=== PATIENT | male | born 1965 | race African-American/Black ===

== ENCOUNTER 2017-07-03 19:52 | Inpatient (IN) | payer OTHER ==
[2017-07-03] MEDS ORDERED: FUROSEMIDE 10 MG/ML 4 ML VIAL IV STA (20:22)
[2017-07-03] MEDS ORDERED: ALBUTEROL NEBULIZED 2.5 MG/3 ML INHALATION STA (20:22)
[2017-07-03] MEDS ORDERED: methylPREDNISolone SOD SUCCI 125 MG/2 ML VIAL IV STA (20:22)
[2017-07-03 20:31] LABS: Basophils # (A) 0.1 k/uL (0-0.2); Basophils % (A) 1 %; Eosinophils # (A) 0.3 k/uL (0-0.7); Eosinophils % (A) 4 %; HCT 44.3 % (39.0-53.0); HGB 14.5 gm/dL (13.0-17.5); Lymphocytes # (A) 1.7 k/uL (1.0-4.8); Lymphocytes % (A) 25 %; MCH 31.9 pg (25.0-35.0); MCHC 32.8 g/dL (31.0-37.0); MCV 97.5 fL (80.0-100.0); Monocytes # (A) 0.3 k/uL (0-1.0); Monocytes % (A) 4 %; Neutrophils # (A) 4.5 k/uL (1.3-7.7); Neutrophils % (A) 64 %; Platelet Count 261 k/uL (150-450); RBC 4.55 m/uL (4.30-5.90); RDW 14.1 % (11.5-15.5)
[2017-07-03 20:47] LABS: Albumin 3.6 g/dL (3.5-5.0); Potassium 3.9 mmol/L (3.5-5.1); Total Bilirubin 2.5 mg/dL (0.2-1.3); Total Protein 6.5 g/dL (6.3-8.2)
[2017-07-03 20:51] LABS: D-Dimer 0.78 mg/L FEU (<0.60); INR 1.1 (<1.2); Partial Thromboplastin Time 22.8 sec (22.0-30.0); Prothrombin Time 11.1 sec (9.0-12.0)
[2017-07-03 21:00] LABS: Creatine Kinase MB 11.4 ng/mL (0.0-2.4); Troponin I 0.114 ng/mL (0.000-0.034)
--- NOTE | 2017-07-03 21:09 | XR ---
EXAMINATION TYPE: XR chest 2V DATE OF EXAM: 07/03/2017 COMPARISON: NONE HISTORY: History of COPD with cough and difficulty breathing. TECHNIQUE: Frontal and lateral views of the chest are obtained. FINDINGS: There is chronic parenchymal change without suspicious focal air space opacity, pleural ef fusion, or pneumothorax seen. The cardiac silhouette size is enlarged with bilateral hilar prominenc e felt to reflect products of underlying pulmonary artery hypertension. The osseous structures are intact. IMPRESSION: Cardiomegaly and chronic parenchymal change without acute pulmonary process.
[2017-07-03] MEDS ORDERED: HEPARIN SODIUM,PORCINE 5,000 UNIT/ML 1 ML VIAL IV ONE (21:38)
--- NOTE | 2017-07-03 21:38 | ED ---
SOB HPI - General Chief Complaint: Shortness of Breath Stated Complaint: SOB Time Seen by Provider: 07/03/17 20:17 Source: patient Mode of arrival: wheelchair Limitations: no limitations - History of Present Illness Initial Comments: 21 years old gentleman came in with a shortness of breath he said he bit short winded for about 20 Weeks he said he ran out of his pills and ran out of his inhalers he said he has a history of COPD and congestive heart failure he denies any fever no chills he is not coughing up any phlegm he saidit only hurt when he takes a deep breath. No headaches no neck stiffness no abdominal pain no chest pain only pleuritic chest pain no fever no chills no sinus symptoms of TIA or CVA - Related Data Home Medications Medication Instructions Recorded Confirmed Aspirin 81 mg PO DAILY 07/03/17 07/03/17 Furosemide [Lasix] 40 mg PO DAILY 07/03/17 07/03/17 Metolazone (Unknown Dose) 1 tab PO DIRECTED 07/03/17 07/03/17 Allergies Allergy/AdvReac Type Severity Reaction Status Date / Time lisinopril AdvReac Swelling Verified 07/03/17 20:18 Review of Systems ROS Statement: Those systems with pertinent positive or pertinent negative responses have been documented in the HPI. ROS Other: All systems not noted in ROS Statement are negative. Past Medical History Past Medical History: Heart Failure, COPD, Hypertension History of Any Multi-Drug Resistant Organisms: None Reported Past Surgical History: No Surgical Hx Reported Past Psychological History: No Psychological Hx Reported Smoking Status: Current every day smoker Past Alcohol Use History: Occasional Past Drug Use History: None Reported General Exam - General Exam Comments Initial Comments: General: The patient is awake and alert, in no distress, and does not appear acutely ill. Skin: Skin is warm and dry and no rashes or lesions are noted. Eye: Pupils are equal, round and reactive to light, extra-ocular movements are intact; there is normal conjunctiva bilaterally. Ears, nose, mouth and throat: There are moist mucous membranes and no oral lesions. Neck: The neck is supple, there is no tenderness Cardiovascular: There is a regular rate and rhythm. No murmur, rub or gallop is appreciated. Respiratory: To auscultation bilateral, noticed some crackles at the bases bilateral, exam is consistent with a moderate COPD as well Gastrointestinal: Soft, non-distended, non-tender abdomen without masses or organomegaly noted. There is no rebound or guarding present. Bowel sounds are unremarkable. Back: There is no tenderness to palpation in the midline. There is no obvious deformity. Musculoskeletal: Normal ROM, no tenderness, There is no pedal edema. There is no calf tenderness or swelling. No cords were appreciated. Neurological: CN II-XII intact, Cranial nerves III through XII are intact. There are no obvious motor or sensory deficits. Coordination appears grossly intact. Speech is normal. Psychiatric: Cooperative, appropriate mood & affect, normal judgment. Limitations: no limitations Course Vital Signs 07/03/17 07/03/17 07/03/17 19:55 20:13 20:33 Temperature 98.1 F Pulse Rate 92 103 H 96 Respiratory 22 20 18 Rate Blood Pressure 187/161 170/123 O2 Sat by Pulse 97 98 Oximetry 07/03/17 20:56 Temperature Pulse Rate 98 Respiratory 18 Rate Blood Pressure O2 Sat by Pulse Oximetry EKG is sinus rhythm with occasional premature ventricular complexes ventricular rate is 98 KS interval is 174 QRS duration is 108 QT/QTC 378/482 review of this EKG does not reveal any ST elevation or ST depression noticed multiple PVCs Medical Decision Making - Lab Data Result diagrams: 07/03/17 20:05 07/03/17 20:05 Lab Results 07/03/17 07/03/17 07/03/17 Range/Units 20:05 20:05 20:05 WBC 7.0 (3.8-10.6) k/uL RBC 4.55 (4.30-5.90) m/uL Hgb 14.5 (13.0-17.5) gm/dL Hct 44.3 (39.0-53.0) % MCV 97.5 (80.0-100.0) fL MCH 31.9 (25.0-35.0) pg MCHC 32.8 (31.0-37.0) g/dL RDW 14.1 (11.5-15.5) % Plt Count 261 (150-450) k/uL Neutrophils % 64 % Lymphocytes % 25 % Monocytes % 4 % Eosinophils % 4 % Basophils % 1 % Neutrophils # 4.5 (1.3-7.7) k/uL Lymphocytes # 1.7 (1.0-4.8) k/uL Monocytes # 0.3 (0-1.0) k/uL Eosinophils # 0.3 (0-0.7) k/uL Basophils # 0.1 (0-0.2) k/uL PT (9.0-12.0) sec INR (<1.2) APTT (22.0-30.0) sec D-Dimer (<0.60) mg/L FEU Sodium 145 (137-145) mmol/L Potassium 3.9 (3.5-5.1) mmol/L Chloride 107 (98-107) mmol/L Carbon Dioxide 31 H (22-30) mmol/L Anion Gap 7 mmol/L BUN 25 H (9-20) mg/dL Creatinine 1.50 H (0.66-1.25) mg/dL Est GFR (MDRD) Af Amer 59 (>60 ml/min/1.73 sqM) Est GFR (MDRD) Non-Af 49 (>60 ml/min/1.73 sqM) Glucose 102 H (74-99) mg/dL Calcium 10.0 (8.4-10.2) mg/dL Total Bilirubin 2.5 H (0.2-1.3) mg/dL AST 50 (17-59) U/L ALT 70 (21-72) U/L Alkaline Phosphatase 82 (38-126) U/L Total Creatine Kinase 971 H (55-170) U/L CK-MB (CK-2) 11.4 H* (0.0-2.4) ng/mL CK-MB (CK-2) Rel Index 1.2 Troponin I 0.114 H* (0.000-0.034) ng/mL NT-Pro-B Natriuret Pep pg/mL Total Protein 6.5 (6.3-8.2) g/dL Albumin 3.6 (3.5-5.0) g/dL 07/03/17 07/03/17 Range/Units 20:05 20:05 WBC (3.8-10.6) k/uL RBC (4.30-5.90) m/uL Hgb (13.0-17.5) gm/dL Hct (39.0-53.0) % MCV (80.0-100.0) fL MCH (25.0-35.0) pg MCHC (31.0-37.0) g/dL RDW (11.5-15.5) % Plt Count (150-450) k/uL Neutrophils % % Lymphocytes % % Monocytes % % Eosinophils % % Basophils % % Neutrophils # (1.3-7.7) k/uL Lymphocytes # (1.0-4.8) k/uL Monocytes # (0-1.0) k/uL Eosinophils # (0-0.7) k/uL Basophils # (0-0.2) k/uL PT 11.1 (9.0-12.0) sec INR 1.1 (<1.2) APTT 22.8 (22.0-30.0) sec D-Dimer 0.78 H (<0.60) mg/L FEU Sodium (137-145) mmol/L Potassium (3.5-5.1) mmol/L Chloride (98-107) mmol/L Carbon Dioxide (22-30) mmol/L Anion Gap mmol/L BUN (9-20) mg/dL Creatinine (0.66-1.25) mg/dL Est GFR (MDRD) Af Amer (>60 ml/min/1.73 sqM) Est GFR (MDRD) Non-Af (>60 ml/min/1.73 sqM) Glucose (74-99) mg/dL Calcium (8.4-10.2) mg/dL Total Bilirubin (0.2-1.3) mg/dL AST (17-59) U/L ALT (21-72) U/L Alkaline Phosphatase (38-126) U/L Total Creatine Kinase (55-170) U/L CK-MB (CK-2) (0.0-2.4) ng/mL CK-MB (CK-2) Rel Index Troponin I (0.000-0.034) ng/mL NT-Pro-B Natriuret Pep 4450 pg/mL Total Protein (6.3-8.2) g/dL Albumin (3.5-5.0) g/dL Critical Care Time Total Critical Care Time: 45 Critical Care Time: Was quite winded on arrival to the point that he had not time even answering the questions, neck treatments and steroids were started right away and Lasix was started as well once we knew that his troponin is elevated but then go ahead and heparinize him though his d-dimer is elevated as well but his kidneys are not initiated to go for a CT angiogram I did speak with the Dr. Ledbetter and recommended that we do the VQ scan he agreed with that I plan to go ahead and heparinize him for his elevated troponin and we will change that heparin dose if his V/Q scan comes back positive. I plan to consult cardiology as well as nephrology Dr. Ledbetter agreed with Disposition Clinical Impression: Dyspnea, Myocardial infarction Disposition: ADMITTED IP TO THIS HOSP Condition: Fair Referrals: None,Stated [Primary Care Provider] - 1-2 days
[2017-07-03] MEDS ORDERED: METOLAZONE PO SCH (21:45)
[2017-07-03] MEDS ORDERED: HEPARIN SOD,PORK IN 0.45% NACL 25,000 UNIT in 0.45% NACL 1 500ML.BAG IV SCH (21:45)
[2017-07-04 02:35] LABS: Creatine Kinase MB 9.5 ng/mL (0.0-2.4); Troponin I 0.092 ng/mL (0.000-0.034)
[2017-07-04] MEDS: NITROGLYCERIN OINT 1 INCH/GM PACKET TOPICAL SCH ×6 (06:00→23:01)
[2017-07-04 08:09] VITALS: BMI 34.6
--- NOTE | 2017-07-04 08:54 | NM ---
EXAMINATION TYPE: NM pul vent and perfuse DATE OF EXAM: 07/04/2017 COMPARISON: NONE HISTORY: Shortness of breath TECHNIQUE: Utilizing inhalation of 69.0 mCi Tc 99m DTPA aerosol and intravenous injection of 5.29 mC i of Tc 99m MAA, ventilation and perfusion images are acquired post injection in multiple projections . FINDINGS: Normal radiotracer distribution is noted in the lungs. There is no evidence of mismatched defects. IMPRESSION: THIS EXAMINATION IS LOW PROBABILITY FOR PULMONARY EMBOLUS.
[2017-07-04] MEDS ORDERED: FUROSEMIDE 40 MG TAB PO SCH (09:00)
[2017-07-04] MEDS ORDERED: ASPIRIN 325 MG TAB PO SCH (09:00)
[2017-07-04] MEDS ORDERED: hydrALAZINE HCL 25 MG TAB PO SCH (09:00)
[2017-07-04 09:08] LABS: Cholesterol 171 mg/dL (<200); HDL Cholesterol 36 mg/dL (40-60); LDL Cholesterol,Calculated 119 mg/dL (0-99); Triglycerides 78 mg/dL (<150)
--- NOTE | 2017-07-04 09:20 | P.NPCON ---
History of Present Illness - Reason for Consult acute renal failure - History of Present Illness Reason for consultation: Acute kidney injury History of present illness: Patient is a 51-year-old male seen in consultation for acute kidney injury. His creatinine was 1.5 on admission. Unclear as to what his baseline renal function is. Patient denies any prior history of kidney disease. Patient presented to the hospital with dyspnea and a productive cough with yellow sputum. Patient states he does have history of COPD dyspnea has been intermittent for the last few months. He did run out of this medications a few months ago. His blood pressures have been on the higher side but again he has not taken any antihypertensives for the last few months. He denies any chest pain. Denies any vomiting or diarrhea. Oral intake is good. His CK level was elevated at 971 and is age 68 this morning. He is currently maintained on IV heparin due to elevated troponin levels. No history of diabetes. States he's ALLERGIC to lisinopril and developed angioedema in the past. His dyspnea is overall improved. Denies use of NSAIDs. No active complaints at this time. Vital signs are stable. General: The patient appeared well nourished and normally developed. HEENT: Head exam is unremarkable. Neck is without jugular venous distension. LUNGS: Lungs are clear to auscultation and percussion. Breath sounds decreased. HEART: Rate and Rhythm are regular. First and second heart sounds normal. No murmurs, rubs or gallops. ABDOMEN: Abdominal exam reveals normal bowel sounds. Non-tender and non- distended. No evidence of peritonitis. EXTREMITITES: No clubbing, cyanosis, or edema. Past Medical History Past Medical History: Heart Failure, COPD, Hypertension, Sleep Apnea/CPAP/BIPAP Additional Past Medical History / Comment(s): does not use a cpap/bipap History of Any Multi-Drug Resistant Organisms: None Reported Past Surgical History: No Surgical Hx Reported Past Psychological History: No Psychological Hx Reported Smoking Status: Current every day smoker Past Alcohol Use History: Occasional Past Drug Use History: None Reported - Past Family History Mother Family Medical History: Myocardial Infarction ([place]) Father History Unknown: Yes Sister(s) Family Medical History: COPD Medications and Allergies Home Medications Medication Instructions Recorded Confirmed Type Aspirin 81 mg PO DAILY 07/03/17 07/03/17 History Furosemide [Lasix] 40 mg PO DAILY 07/03/17 07/03/17 History Metolazone (Unknown Dose) 1 tab PO DIRECTED 07/03/17 07/03/17 History Allergies Allergy/AdvReac Type Severity Reaction Status Date / Time lisinopril AdvReac Swelling Verified 07/03/17 20:18 Physical Exam Vitals: Vital Signs Temp Pulse Resp BP Pulse Ox 07/04/17 04:00 81 18 146/98 96 07/04/17 00:25 79 18 159/90 97 07/03/17 23:26 98.7 F 69 20 161/100 07/03/17 22:09 102 H 18 154/88 97 07/03/17 21:39 97.1 F L 104 H 18 154/97 96 07/03/17 20:56 98 18 07/03/17 20:33 96 18 07/03/17 20:13 103 H 20 170/123 98 07/03/17 19:55 98.1 F 92 22 187/161 97 Intake and Output 07/03/17 07/04/17 07/04/17 22:59 06:59 14:59 Intake Total 158 Balance 158 Intake: Intake, IV Titration 158 Amount Heparin Sod,Pork in 0.45% 158 NaCl 25,000 unit In 0.45 % NaCl 1 500ml.bag @ 7.8 UNITS/KG/HR 20.23 mls/hr IV .Q24H ARMANDO Rx#: [id number] Other: Weight 129.682 kg 129 kg Results - Lab Results Most recent lab results Calcium 10.0 mg/dL (8.4-10.2) 07/03/17 20:05 07/03/17 20:05 07/03/17 20:05 Assessment and Plan Plan: Assessment: #1. Acute kidney injury versus chronic kidney disease. Unclear as to what his baseline function is. Creatinine 1.5 on admission. Labs from today are pending at this time. #2. Dyspnea related to COPD exacerbation. No evidence of fluid overload noted on chest x-ray. VQ scan pending. #3. Benign hypertension. Blood pressures on the higher side due to noncompliance with medications. #4. History of CHF. Unknown ejection fraction. Plan: I will add amlodipine 5 mg once daily. Start hydralazine 25 mg 3 times daily. Continue Lasix 40 mg once daily. Follow-up VQ scan results. Check urinalysis. Check renal ultrasound. Repeat electrolytes in the morning. Avoid nephrotoxic agents and hypotensive episodes. Thank you for the consultation. I will continue to follow the patient with you during his hospital stay.
[2017-07-04 09:28] LABS: Creatine Kinase MB 11.1 ng/mL (0.0-2.4)
[2017-07-04 09:29] LABS: Troponin I 0.073 ng/mL (0.000-0.034)
[2017-07-04] MEDS: amLODIPine 5 MG TAB PO SCH (10:16)
--- NOTE | 2017-07-04 10:19 | US ---
EXAMINATION TYPE: US kidneys/renal and bladder DATE OF EXAM: 07/04/2017 COMPARISON: NONE CLINICAL HISTORY: sarah. Patient admitted for SOB, h/o COPD, kidney labs were "off" per patient, no h/o renal issues EXAM MEASUREMENTS: Right Kidney: 11.4 x 5.6 x 5.4 cm Left Kidney: 11.1 x 4.8 x 6.3 cm Right Kidney: No hydronephrosis or masses seen Left Kidney: No hydronephrosis or masses seen Bladder: not distended There is no evidence for hydronephrosis at this point in time. No nephrolithiasis is seen. No shalom s are identified. The urinary bladder is not distended. IMPRESSION: NORMAL RENAL ULTRASOUND.
[2017-07-04] MEDS: hydrALAZINE HCL 50 MG TAB PO SCH ×3 (10:23→21:02)
[2017-07-04] MEDS: FUROSEMIDE 10 MG/ML 4 ML VIAL IV SCH ×2 (10:23→20:57)
[2017-07-04] MEDS: METOPROLOL TARTRATE 25 MG TAB PO SCH ×3 (10:24→21:02)
--- NOTE | 2017-07-04 16:03 | HP ---
HISTORY AND PHYSICAL DATE OF SERVICE: 07/04/2017. CHIEF COMPLAINT: Shortness of breath. BRIEF HISTORY: This is a 51-year-old male patient who presented to ED with a complaint of shortness of breath. The patient does have history of hypertension, COPD, and congestive heart failure. He relates that for past few weeks he has been short winded with exertion. He said that he is running out of his medication and inhalers earlier because he is needing to more of his medication. He did not have any fever or chills. No cough or any sputum. No concern about syncope. Patient relates that his blood pressure has been high because he did not take any antihypertensive medications for the last few months. He claims that he used to be on lisinopril which caused angioedema and his lisinopril was discontinued after which he never started back on medications. PAST MEDICAL HISTORY: 1. Hypertension, hypertensive cardiovascular disease/CHF. 2. COPD. PAST SURGICAL HISTORY: Unremarkable. SOCIAL HISTORY: Patient is a daily smoker, has a long-standing history of smoking. No history of alcohol or drug abuse. FAMILY HISTORY: Significant for coronary artery disease in mother, status post myocardial infarction and history of COPD in his sister. ALLERGIC: LISINOPRIL. MEDICATIONS: Patient is on aspirin 81 mg daily, Lasix 40 mg daily and metolazone 1 tablet as directed. Patient claims he uses it p.r.n. REVIEW OF SYSTEM: CONSTITUTIONAL: Patient denies fever, chills, any unexplained weight loss. HEENT: No vision or hearing loss. RESPIRATORY: Shortness of breath as described above. CARDIOVASCULAR: No chest pain or palpitations. ABDOMEN/GI: Denies any nausea, vomiting or diarrhea. GENITOURINARY: No hematuria or dysuria. MUSCULOSKELETAL SYSTEM: Patient has no joint deformities or swelling. No rashes or pigmentation. NEUROLOGICAL EXAMINATION: No dizziness, lightheadedness. No migraine headache. ENDOCRINE: No polyuria, polydipsia. SKIN: No rashes, pigmentation or ecchymosis. HEMATOLOGY: No coagulation disorder versus bleeding disorders. The rest of 14-point review of system is unremarkable. PHYSICAL EXAMINATION: Patient is awake, alert, oriented x3. He is in no acute distress. VITAL SIGNS: Temperature 98.1, pulse 92, respiration 22, blood pressure 187/161, O2 saturation 97%. HEENT: Atraumatic, normocephalic. Pupils equal and reactive to light. Extraocular movements intact. Buccal mucosa is fair. NECK: Supple. No goiter, lymphadenopathy. JVD is negative. No carotid bruit heard. LUNGS/RESPIRATORY: On auscultation of lungs there are bibasilar crackles with scattered rhonchi. Heart is regular rate and rhythm without any murmurs or gallop rhythm. ABDOMEN: Soft, nontender, nondistended. Bowel sounds positive. No guarding, rigidity. No organomegaly. Bowel sounds are positive. EXTREMITIES: No edema, clubbing or cyanosis. Pulses are palpable. MUSCULOSKELETAL SYSTEM: Patient has no joint or muscle deformity. Moves all 4 extremities. NEUROLOGICAL EXAMINATION: Cranial nerves 2-12 grossly intact. No gross motor or sensory deficit. Skin is warm, dry and intact. PSYCHIATRIC EXAMINATION: Patient has appropriate affect and mood. Normal judgment. LAB: CBC: White blood count of 7, hemoglobin 14.5, hematocrit 44.3, and platelet count 261. Chemical profile: Sodium 145, potassium 3.9, chloride 107, bicarb 31, BUN 25, creatinine 1.50 and glucose is 105. Troponin is 0.114. CK is 971, MB of 11.4. ASSESSMENT: 1. Elevated troponin; rule out acute coronary syndrome. 2. Acute renal injury. 3. Accelerated hypertension. 4. Acute exacerbation chronic obstructive pulmonary disease. 5. Hypertensive cardiovascular disease/cardiomyopathy. PLAN: Admit the patient to telemetry, will monitor cardiac enzymes and EKG. Will consult GI and consult Cardiology for further recommendations. Patient will be started on nebulizer treatment and IV steroids. V/Q scan was done in the ED, which is negative for PE. Low probability for PE. CT angiogram was not done because of renal dysfunction. The patient has been started on hydralazine and Norvasc by Nephrology service. We will monitor strict I and Os, renal function and electrolytes. Continue with other medications. Further recommendations after the patient is seen by Cardiology. MMODL / IJN: [id number] /
[2017-07-04] MEDS: HEPARIN SODIUM,PORCINE 5,000 UNIT/ML 1 ML VIAL SQ SCH (20:57)
--- NOTE | 2017-07-04 21:12 | CONS ---
CONSULTATION This is a 51-year-old gentleman who has apparently lived for 20 or more years in [place], used to see a doctor there, came into to [place] recently. He is known to carry a diagnosis of CHF and COPD, but has not taken his medications for the last several months. He is here because of increasing shortness of breath. At the time of my evaluation, patient is somewhat irritated and not happy. I asked him how he was feeling and his answers were somewhat braden and he did not wish to be told that he has any abnormalities of his renal function or of his heart function. His arrival to the hospital seemed to be more or less with an increasing shortness of breath, was seen at the emergency room and admitted with a diagnosis of exacerbation of CHF. He has not been taking his medications on a regular basis. He denies any chest pain, but has had increasing shortness of breath with decreased functional capacity with swelling of lower extremities to a mild extent. PAST MEDICAL HISTORY: Carries a diagnosis of heart failure, details unclear. Also has COPD, history of hypertension, but has been not been taking medications on a regular basis. ALLERGIES: HE IS ALLERGIC TO LISINOPRIL. MEDS: Home medications that he was supposed to take but he has not taken include aspirin 81 mg daily, Lasix 40 mg daily, metolazone dose unclear. EXAMINATION: Blood pressure is 140/80, pulse rate is 80 per minute. HEENT unremarkable. Fundus was not examined by me. NECK: Supple. There is JVD of at least 1 cm. No carotid bruit. Heart exam reveals S1, S2 heard normally. There is evidence of a short systolic murmur left lower sternal border. Lungs reveal fine rales over both bases. ABDOMEN: Soft, nontender. Lower extremities reveal diminished pulses, trace edema. Central nervous system is grossly within normal limits. EKG revealed a sinus rhythm with LVH by voltage criteria, left atrial abnormality, an isolated ventricular ectopy. LABORATORY DATA: Reveals that his D-dimer was elevated at 0.78, but a V/Q scan revealed low probability. Creatinine is elevated to 1.5. His troponin profile suggests that initial one was 0.11. Repeat one was 0.09 and then 0.07. Possibility of myocardial injury cannot be totally excluded. BNP is elevated to 4450. IMPRESSION: 1. Exacerbation of congestive heart failure. 2. Chronic kidney disease. 3. Possible chronic obstructive pulmonary disease with smoking. 4. Tobacco abuse. RECOMMENDATIONS: This patient does not have any intentions of quitting smoking. He seems to be quite noncompliant with medications in the past. I am recommending that we give him subcu heparin 5000 q.12 and give him IV Lasix 40 mg q.12 hours. Increase the hydralazine and add a small dose of beta danae and obtain echocardiogram to assess LV function. He has been counseled regarding the need to quit smoking, but he is quite angry and has said that he will not stop smoking. Based on clinical course, I will make further recommendations. Thank you very much for the consultation. BRENDON / DELBERT: [id number] /
[2017-07-05 06:11] LABS: Basophils # (A) 0.1 k/uL (0-0.2); Basophils % (A) 1 %; Eosinophils # (A) 0.3 k/uL (0-0.7); Eosinophils % (A) 3 %; HCT 45.3 % (39.0-53.0); HGB 14.1 gm/dL (13.0-17.5); Lymphocytes # (A) 2.8 k/uL (1.0-4.8); Lymphocytes % (A) 25 %; MCH 31.6 pg (25.0-35.0); MCHC 31.1 g/dL (31.0-37.0); MCV 101.5 fL (80.0-100.0); Macrocytosis Slight; Mean Platelet Volume 7.3; Monocytes # (A) 0.4 k/uL (0-1.0); Monocytes % (A) 3 %; Neutrophils # (A) 7.3 k/uL (1.3-7.7); Neutrophils % (A) 67 %; Platelet Count 267 k/uL (150-450); RBC 4.46 m/uL (4.30-5.90); RDW 13.8 % (11.5-15.5); WBC 10.9 k/uL (3.8-10.6)
[2017-07-05] MEDS: NITROGLYCERIN OINT 1 INCH/GM PACKET TOPICAL SCH ×4 (06:17→23:22)
[2017-07-05 06:27] LABS: Anion Gap 8 mmol/L; Blood Urea Nitrogen 31 mg/dL (9-20); Calcium 9.5 mg/dL (8.4-10.2); Carbon Dioxide 27 mmol/L (22-30); Chloride 106 mmol/L (98-107); Glucose 131 mg/dL (74-99); Magnesium 2.1 mg/dL (1.6-2.3); Sodium 141 mmol/L (137-145)
[2017-07-05] MEDS: hydrALAZINE HCL 50 MG TAB PO SCH ×3 (09:13→21:54)
[2017-07-05] MEDS: ASPIRIN 81 MG PO SCH (09:13)
[2017-07-05] MEDS: amLODIPine 5 MG TAB PO SCH (09:13)
[2017-07-05] MEDS: METOPROLOL TARTRATE 25 MG TAB PO SCH (09:13)
[2017-07-05] MEDS: HEPARIN SODIUM,PORCINE 5,000 UNIT/ML 1 ML VIAL SQ SCH ×2 (09:14→21:54)
--- NOTE | 2017-07-05 09:21 | P.PN ---
Subjective Patient is seen in follow-up for acute kidney injury. Creatinine is a little improved at 1.4 today. His blood pressures also better controlled. He does admit to some lower extremity edema. Admits to good urine output. No vomiting or diarrhea. Still has dyspnea which she attributes to COPD. No chest pain. Vital signs are stable. General: The patient appeared well nourished and normally developed. HEENT: Head exam is unremarkable. Neck is without jugular venous distension. LUNGS: Lungs are clear to auscultation and percussion. Breath sounds decreased. HEART: Rate and Rhythm are regular. First and second heart sounds normal. No murmurs, rubs or gallops. ABDOMEN: Abdominal exam reveals normal bowel sounds. Non-tender and non- distended. No evidence of peritonitis. EXTREMITITES: Trace edema. Objective - Vital Signs Vital signs: Vital Signs Temp 97.6 F 07/05/17 04:00 Pulse 79 07/05/17 04:00 Resp 18 07/05/17 04:00 BP 136/97 07/05/17 04:00 Pulse Ox 95 07/05/17 04:00 Intake & Output 07/04/17 07/05/17 07/05/17 18:59 06:59 18:59 Intake Total 480 130 240 Balance 480 130 240 Weight 128 kg Intake: IV 10 0.9 10 Oral 480 120 240 Other: Voiding Method Toilet # Voids 1 - Labs CBC & Chem 7: 07/05/17 05:46 07/05/17 05:46 Labs: Abnormal Lab Results - Last 24 Hours (Table) 07/04/17 07/05/17 07/05/17 Range/Units 08:27 05:46 05:46 WBC 10.9 H (3.8-10.6) k/uL MCV 101.5 H (80.0-100.0) fL BUN 31 H (9-20) mg/dL Creatinine 1.40 H (0.66-1.25) mg/dL Glucose 131 H (74-99) mg/dL Total Creatine Kinase 696 H (55-170) U/L CK-MB (CK-2) 11.1 H* (0.0-2.4) ng/mL Troponin I 0.073 H* (0.000-0.034) ng/mL Assessment and Plan Plan: Assessment: #1. Nonoliguric acute kidney injury secondary to ATN secondary to cardiorenal syndrome. Creatinine improved to 1.4 today. Unclear as to what his baseline function is. Creatinine 1.5 on admission. No evidence of hydronephrosis noted on renal ultrasound. #2. Dyspnea related to COPD exacerbation. No evidence of fluid overload noted on chest x-ray. VQ scan pending. #3. Benign hypertension. Blood pressures on the higher side due to noncompliance with medications. #4. History of CHF. Unknown ejection fraction. Plan: Maintain current antihypertensives. Resume Lasix 40 mg IV twice a day. Await urinalysis. Repeat electrolytes in the morning. Avoid nephrotoxic agents and hypotensive episodes. Follow-up echocardiogram results. Low evidence of PE. VQ scan.
[2017-07-05] MEDS ORDERED: FUROSEMIDE 10 MG/ML 4 ML VIAL IV SCH (09:30)
--- NOTE | 2017-07-05 11:15 | ECHOF ---
Referral Reason:pain/shortness of breath/post procedure MEASUREMENTS -------- HEIGHT: 188.0 cm WEIGHT: 127.9 kg BP: 136/97 IVSd: 1.8 cm (0.6 - 1.1) LVIDd: 5.1 cm (3.9 - 5.3) LVPWd: 2.0 cm (0.6 - 1.1) IVSs: 1.7 cm LVIDs: 4.9 cm LVPWs: 1.5 cm LAESV Index (A-L): 26.97 ml/m Ao Diam: 2.9 cm (2.0 - 3.7) AV Cusp: 2.0 cm (1.5 - 2.6) LA Diam: 4.2 cm (2.7 - 3.8) MV EXCURSION: 22.646 mm (> 18.000) MV EF SLOPE: 196 mm/s (70 - 150) EPSS: 1.8 cm MV E Jose: 1.15 m/s MV DecT: 148 ms MV A Jose: 0.42 m/s MV E/A Ratio: 2.72 RAP: 15.00 mmHg RVSP: 33.20 mmHg FINDINGS -------- Sinus rhythm. This was a technically good study. The left ventricular size is normal. There is severe concentric left ventricular hypertrophy. The re is severe global hypokinesis of LV . Overall left ventricular systolic function is severely impa ired with, an EF < 20%. The right ventricle is normal in size and function. Normal LA size by volume 22+/-6 ml/m2. The right atrium is mildly enlarged. The aortic valve is trileaflet, and appears structurally normal. No aortic stenosis or regurgitation. The mitral valve leaflets are mildly thickened. Mild mitral regurgitation is present. Mild tricuspid regurgitation present. There is no evidence of pulmonary hypertension. The right v entricular systolic pressure, as measured by Doppler, is 33.20mmHg. Trace/mild (physiologic) pulmonic regurgitation. The aortic root size is normal. The inferior vena cava is dilated with no significant inspiratory collapse which is consistent estima poli right atrial pressure of >20 mmHg. There is no pericardial effusion. CONCLUSIONS -------- 1. Sinus rhythm. 2. This was a technically good study. 3. The left ventricular size is normal. 4. There is severe concentric left ventricular hypertrophy. 5. There is severe global hypokinesis of LV . 6. Overall left ventricular systolic function is severely impaired with, an EF < 20%. 7. Normal LA size by volume 22+/-6 ml/m2. 8. The right atrium is mildly enlarged. 9. The aortic valve is trileaflet, and appears structurally normal. No aortic stenosis or regurgitati on. 10. The mitral valve leaflets are mildly thickened. 11. Mild mitral regurgitation is present. 12. Mild tricuspid regurgitation present. 13. There is no evidence of pulmonary hypertension. 14. Trace/mild (physiologic) pulmonic regurgitation. 15. The aortic root size is normal. 16. The inferior vena cava is dilated with no significant inspiratory collapse which is consistent es timated right atrial pressure of >20 mmHg. 17. There is no pericardial effusion. [employer] ARCHITECT: Claudia Saldivar RDCS
[2017-07-05 11:22] LABS: Appearance,Urine Clear (Clear); Bilirubin,Urine Negative (Negative); Blood,Urine Negative (Negative); Color,Urine Yellow; Glucose,Urine (UA) Negative (Negative); Ketones,Urine Negative (Negative); Leukocyte Esterase,Urine Negative (Negative); Nitrite,Urine Negative (Negative); PH, Urine 5.5 (5.0-8.0); Protein,Urine Negative (Negative); Urobilinogen,Urine <2.0 mg/dL (<2.0)
[2017-07-05] MEDS: FUROSEMIDE 10 MG/ML 4 ML VIAL IV SCH ×2 (17:52→23:22)
[2017-07-05] MEDS: METOPROLOL TARTRATE 50 MG TAB PO SCH ×2 (17:53→21:54)
--- NOTE | 2017-07-05 17:58 | P.PN ---
Subjective Progress Note Date: 07/05/17 Progress note being dictated for Dr. Oliveira Interval history: This a 51-year-old gentleman admitted with elevated troponins , acute renal failure, accelerated hypertension, acute COPD and multiple other medical issues. Echo reporting severely impaired LV function, EF less than 20% Evaluated by nephrology and cardiology with recommendations noted. Renal function slowly improving. Renal ultrasound reporting no hydronephrosis. Telemetry sinus rhythm to sinus bradycardia, trigeminy, bigeminy. Potassium and magnesium within normal limits. Diuresing well on Lasix IV push with 24- hour I&O reflecting a negative fluid balance. Denies chest pain, palpitations. Objective - Vital Signs Vital signs: Vital Signs Temp 98.3 F 07/05/17 15:00 Pulse 76 07/05/17 15:00 Resp 18 07/05/17 15:00 BP 141/92 07/05/17 15:00 Pulse Ox 97 07/05/17 15:00 Intake & Output 07/04/17 07/05/17 07/05/17 18:59 06:59 18:59 Intake Total 480 130 480 Output Total 1400 Balance 480 130 -920 Weight 128 kg Intake: IV 10 0.9 10 Oral 480 120 480 Output: Urine 1400 Other: Voiding Method Toilet Toilet # Voids 1 2 - Exam PHYSICAL EXAM: VITAL SIGNS: As above GENERAL: Sitting up in bed, no acute distress HEENT: Conjunctivae normal. eyes normal. Oral mucosa moist NECK: No JVD. No thyroid enlargement. No LNs CARDIOVASCULAR: S1, S2 muffled. No murmur RESPIRATION: Breath sounds diminished in the bases. No rhonchi, no crackles ABDOMEN: Soft, nontender . No guarding. no masses palpable. Bowel sounds heard. LEGS: No edema. no swelling PSYCHIATRY: Alert and oriented -3, mood and affect normal. NERVOUS SYSTEM: Cranial N 2-12 grossly normal. Moves all 4 limbs. Diffuse weakness No focal deficits. Skin: no ulcer no rash Joints: No active swelling. No inflammation. Lymphatic system. No LN neck axilla or groin. - Labs CBC & Chem 7: 07/05/17 05:46 07/05/17 05:46 Labs: Abnormal Lab Results - Last 24 Hours (Table) 07/05/17 07/05/17 Range/Units 05:46 05:46 WBC 10.9 H (3.8-10.6) k/uL MCV 101.5 H (80.0-100.0) fL BUN 31 H (9-20) mg/dL Creatinine 1.40 H (0.66-1.25) mg/dL Glucose 131 H (74-99) mg/dL Assessment and Plan Assessment: 1. Elevated troponin, rule out acute coronary syndrome 2. Acute renal failure 3. Accelerated hypertension 4. Acute exacerbation COPD 5. Hypertensive cardiovascular disease, cardiomyopathy. Acute on Chronic congestive heart failure, systolic dysfunction, EF less than 20%. 6. Ongoing nicotine dependence. Plan: Continue on current medication regime , hydralazine, beta danae, monitoring and symptomatic treatment. Smoking cessation readdressed. Follow closely with nephrology and cardiology. Patient will need PCP at discharge. Increase ambulation as tolerated. The impression and plan of care has been dictated as directed. : I performed a history and examination of this patient, discussed the same with the dictator. I agree with the dictator's note ,documented as a scribe. Any additional findings or plans will be noted.
--- NOTE | 2017-07-05 20:55 | PN ---
PROGRESS NOTE This is a gentleman who has what seems to be significant heart failure and cardiomyopathy type picture. His functional capacity is quite poor. He is short of breath with mild activity. Echocardiogram that was performed this morning revealed an ejection fraction of less than 20% with a severe global decrease in contractility. The right ventricular pressures are not elevated. Right ventricle is of normal size. Left ventricle is also of normal size. There is no evidence of any significant valvular disease. I discussed this with the patient, explained to him that we will optimize management for his heart failure. I will try and obtain records from his primary doctor in the [facility]. Blood pressure is 127/70. Pulse rate is 80 per minute, sinus. JVD is about 1 cm. No carotid bruit. S1, S2 heard normally. Short systolic murmur noted. Lungs reveal fine rales over both bases. Abdomen is soft, nontender. Lower extremity edema is noted but better. Plan is to increase his diuresis cautiously with 40 mg of Lasix q.8 hours. Hydralazine will be 50 mg t.i.d. Will discontinue Norvasc, increase metoprolol to 50 mg t.i.d., continue nitroglycerin paste. Based on clinical course, I will make further recommendations, but prognosis is poor. Patient does not recall having had a cardiac catheterization in the past. MMODL / IJN: [id number] /
[2017-07-06] MEDS: NITROGLYCERIN OINT 1 INCH/GM PACKET TOPICAL SCH (06:01)
[2017-07-06 06:42] LABS: Anion Gap 9 mmol/L; Blood Urea Nitrogen 30 mg/dL (9-20); Calcium 9.1 mg/dL (8.4-10.2); Carbon Dioxide 29 mmol/L (22-30); Chloride 102 mmol/L (98-107); Glucose 111 mg/dL (74-99); Potassium 3.7 mmol/L (3.5-5.1); Sodium 140 mmol/L (137-145)
[2017-07-06] MEDS: hydrALAZINE HCL 50 MG TAB PO SCH ×2 (08:32→16:03)
[2017-07-06] MEDS: ASPIRIN 81 MG PO SCH (08:32)
[2017-07-06] MEDS: HEPARIN SODIUM,PORCINE 5,000 UNIT/ML 1 ML VIAL SQ SCH (08:32)
[2017-07-06] MEDS: FUROSEMIDE 10 MG/ML 4 ML VIAL IV SCH (08:33)
[2017-07-06 08:46] VITALS: TEMP 98.6
[2017-07-06] MEDS ORDERED: METOPROLOL TARTRATE 25 MG TAB PO SCH (09:00)
--- NOTE | 2017-07-06 09:04 | P.PN ---
Subjective Patient is seen in follow-up for acute kidney injury. Creatinine is a little improved at 1.3 today. His blood pressures also better controlled. States edema has improved. Admits to good urine output. No vomiting or diarrhea. Denies chest pain or shortness of breath. Currently maintained on Lasix 40 mg IV every 8 hours. He is noted to have an ejection fraction of less than 20%. Vital signs are stable. General: The patient appeared well nourished and normally developed. HEENT: Head exam is unremarkable. Neck is without jugular venous distension. LUNGS: Lungs are clear to auscultation and percussion. Breath sounds decreased. HEART: Rate and Rhythm are regular. First and second heart sounds normal. No murmurs, rubs or gallops. ABDOMEN: Abdominal exam reveals normal bowel sounds. Non-tender and non- distended. No evidence of peritonitis. EXTREMITITES: Trace edema. Objective - Vital Signs Vital signs: Vital Signs Temp 98.6 F 07/06/17 08:00 Pulse 70 07/06/17 08:00 Resp 18 07/06/17 08:00 BP 129/79 07/06/17 08:00 Pulse Ox 96 07/06/17 08:00 Intake & Output 07/05/17 07/06/17 07/06/17 18:59 06:59 18:59 Intake Total 720 Output Total 1400 800 Balance -680 -800 Weight 125 kg Intake: Oral 720 Output: Urine 1400 800 Other: Voiding Method Toilet # Voids 2 1 - Labs CBC & Chem 7: 07/05/17 05:46 07/06/17 06:11 Labs: Abnormal Lab Results - Last 24 Hours (Table) 07/06/17 Range/Units 06:11 BUN 30 H (9-20) mg/dL Creatinine 1.30 H (0.66-1.25) mg/dL Glucose 111 H (74-99) mg/dL Assessment and Plan Plan: Assessment: #1. Nonoliguric acute kidney injury secondary to ATN secondary to cardiorenal syndrome. Creatinine improved to 1.3 today. Unclear as to what his baseline function is. Creatinine 1.5 on admission. No evidence of hydronephrosis noted on renal ultrasound. Urinalysis is benign. #2. Dyspnea related to COPD exacerbation. No evidence of fluid overload noted on chest x-ray. #3. Benign hypertension. Controlled. Partially volume sensitive. #4. Systolic CHF with ejection fraction of less than 20%. Plan: Maintain current antihypertensives. Resume Lasix 40 mg IV three a day. Repeat electrolytes in the morning. Avoid nephrotoxic agents and hypotensive episodes. Anticipate discharge soon. He can be discharged on Lasix 60 mg orally twice daily and K-Dur 10 milliequivalents daily. I advised him to follow a low-salt and 50-60 ounces of fluid restricted diet daily. He will need to get a basic metabolic panel checked within 2-3 days of discharge and follow-up as an outpatient in the next 1-2 weeks.
[2017-07-06] MEDS ORDERED: POTASSIUM CHLORIDE ER 10 MEQ TAB.ER.PRT PO SCH (09:15)
[2017-07-06] MEDS ORDERED: ISOSORBIDE MONONITRATE ER 15 MG TAB PO SCH (11:00)
[2017-07-06] MEDS ORDERED: LOSARTAN 25 MG TAB PO SCH ×2 (11:00)
--- NOTE | 2017-07-06 12:41 | P.PN ---
Subjective Progress Note Date: 07/06/17 This is a 51-year-old -[place] gentleman who carries a known diagnosis of CHF and COPD but had not been taking his medication for several months. He presented to the hospital with symptoms of progressively worsening shortness of breath. Patient was initiated on IV Lasix has been diuresing well. Echocardiogram with Doppler study was performed which revealed a severely impaired left ventricular systolic function with an ejection fraction of less than 20%. Blood pressure 128/78 with a heart rate in the 70s, 96% on room air. Sodium 140, potassium 3.7, BUN 30, creatinine 1.3. Objective - Vital Signs Vital signs: Vital Signs Temp 98.6 F 07/06/17 08:00 Pulse 70 07/06/17 08:00 Resp 18 07/06/17 08:00 BP 129/79 07/06/17 08:00 Pulse Ox 96 07/06/17 08:00 Intake & Output 07/05/17 07/06/17 07/06/17 18:59 06:59 18:59 Intake Total 720 240 Output Total 1400 800 200 Balance -680 -800 40 Weight 125 kg Intake: Oral 720 240 Output: Urine 1400 800 200 Other: Voiding Method Toilet # Voids 2 1 - Exam PHYSICAL EXAMINATION: HEENT: Head is atraumatic, normocephalic. Pupils equal, round. Neck is supple. There is elevated jugular venous pressure. HEART EXAMINATION: Heart S1 and S2 with systolic murmur is heard CHEST EXAMINATION: Lungs are clear with mild diminished air entry to the bases ABDOMEN: Soft, nontender. Bowel sounds are heard. No organomegaly noted. EXTREMITIES: 2+ peripheral pulses with trace evidence of peripheral edema and no calf tenderness noted. NEUROLOGIC patient is awake, alert and oriented -3. . - Labs CBC & Chem 7: 07/05/17 05:46 07/06/17 06:11 Labs: Abnormal Lab Results - Last 24 Hours (Table) 07/06/17 Range/Units 06:11 BUN 30 H (9-20) mg/dL Creatinine 1.30 H (0.66-1.25) mg/dL Glucose 111 H (74-99) mg/dL Assessment and Plan Plan: Assessment and plan #1 systolic congestive heart failure acute on chronic #2 cardiomyopathy, unknown etiology #3 hypertension #4 acute on chronic kidney injury #5 COPD #[address] Cruz had a lengthy discussion with the patient regarding the need for cardiac catheterization to determine the cause of the underlying cardiomyopathy. Patient wishes to be discharged home today and have that performed as an outpatient. He was noted on the monitor today to have some pauses, mostly occurring while the patient is sleeping however patient is also noted to have some curer acid drum pauses while he was awake. We will decrease his dose of beta danae to 25 mg twice a day. He has been up ambulating in the hallway most of the day today. We will replace his potassium, and initiate losartan 12-1/2 mg now and daily. Discontinue IV Lasix and start the patient on Lasix 40 twice a day. Add Imdur 15 mg daily and discontinue Nitropaste. Follow-up appointment will be made with Dr. Alfonso Cruz in the office post discharge. DNP note has been reviewed, I agree with a documented findings and plan of care. Patient was seen and examined.
[2017-07-06 12:57] VITALS: BP 143/93; PULSE 71; RESP 17
[2017-07-06] MEDS ORDERED: FUROSEMIDE 40 MG TAB PO SCH (16:00)
--- NOTE | 2017-07-07 00:19 | DS ---
DISCHARGE SUMMARY FINAL DIAGNOSES: 1. Congestive heart failure exacerbation with [id number] systolic dysfunction with cardiomyopathy, ejection fraction 20%. 2. Acute renal failure next. 3. Elevated troponin, indeterminate. 4. Accelerated hypertension. 5. Chronic obstructive pulmonary disease. 6. Ongoing nicotine dependence. DISCHARGE DISPOSITION: The patient will be discharged in stable condition with guarded prognosis. HISTORY OF PRESENT ILLNESS: This 51-year-old gentleman with a past history of multiple medical problems being followed by primary physician in the outpatient was admitted with shortness of breath, renal failure, CHF, accelerated hypertension, as well as indeterminate troponins. The patient was treated symptomatically. The patient improved significantly. Multiple consultants were following the patient. On exam, vitals are stable. CARDIOVASCULAR: S1 and S2. RESPIRATIONS: A few rhonchi. ABDOMEN: Soft. NERVOUS SYSTEM: No focal deficits. DISCHARGE ADVICE: 1. Diet is cardiac. 2. Activity limited until followup. 3. Followup with Dr. Jonah Cruz as mentioned. 4. Followup with Dr. Storey as advised. 5. Followup with Dr. Wick in 1 week. MEDICATIONS: 1. Aspirin 81 mg p.o. daily. 2. Lasix 60 mg p.o. b.i.d. 3. Hydralazine 50 mg p.o. t.i.d. 4. Imdur ER 15 mg p.o. daily. 5. Cozaar 12.5 mg p.o. daily. 6. Metolazone 1 tab p.o. p.r.n. 7. Lopressor 25 mg p.o. b.i.d. Once again, the patient will be discharged in stable condition with a guarded prognosis. MMODL / IJN: [id number] /
== END 2017-07-06 18:18 | disposition home or self-care (01) | DRG 291 ==
LOC: EC 19:52 → 6SEL 21:38
PROVIDERS: ADMIT Hospitalist; ATTEND Hospitalist
DX: I13.0 Hypertensive heart and chronic kidney disease with heart failure and stage 1 through stage 4 chronic kidney disease, or unspecified chronic kidney disease (principal); N17.0 Acute kidney failure with tubular necrosis; I50.23 Acute on chronic systolic (congestive) heart failure; J44.1 Chronic obstructive pulmonary disease with (acute) exacerbation; I42.9 Cardiomyopathy, unspecified; F17.200 Nicotine dependence, unspecified, uncomplicated; N18.9 Chronic kidney disease, unspecified; T39.016A Underdosing of aspirin, initial encounter; T50.1X6A Underdosing of loop [high-ceiling] diuretics, initial encounter; T50.2X6A Underdosing of carbonic-anhydrase inhibitors, benzothiadiazides and other diuretics, initial encounter; R01.1 Cardiac murmur, unspecified; R00.1 Bradycardia, unspecified; G47.30 Sleep apnea, unspecified; Z91.14 Patient's other noncompliance with medication regimen; Z71.6 Tobacco abuse counseling; Z82.49 Family history of ischemic heart disease and other diseases of the circulatory system; Z82.5 Family history of asthma and other chronic lower respiratory diseases; Z88.8 Allergy status to other drugs, medicaments and biological substances; Z79.82 Long term (current) use of aspirin; Z79.899 Other long term (current) drug therapy
CPT/HCPCS: 36415; 71046; 76770; 78582; 80048; 80053; 80061; 81003; 82550; 82553; 83735; 83880; 84484; 85025; 85379; 85610; 85730; 93005; 93306; 94640; 96365; 96366; 96375; 96376; 99291

== ENCOUNTER 2017-07-11 05:42 | Inpatient (IN) | payer OTHER ==
[2017-07-11 06:18] LABS: HCT 42.7 % (39.0-53.0); MCHC 32.8 g/dL (31.0-37.0); MCV 97.6 fL (80.0-100.0); Mean Platelet Volume 7.2; Platelet Count 265 k/uL (150-450); RBC 4.37 m/uL (4.30-5.90); RDW 13.5 % (11.5-15.5); WBC 7.7 k/uL (3.8-10.6)
[2017-07-11] MEDS ORDERED: NITROGLYCERIN OINT 1 INCH/GM PACKET TOPICAL STA (06:19)
--- NOTE | 2017-07-11 06:19 | ED ---
General Adult HPI - General Source: EMS, RN notes reviewed Mode of arrival: EMS Limitations: no limitations <Abelardo Collins - Last Filed: 07/11/17 06:57> <Abelardo España - Last Filed: 07/12/17 11:38> - General Chief complaint: Chest Pain Stated complaint: Chest Pain Time Seen by Provider: 07/11/17 06:00 - History of Present Illness Initial comments: This is a 51-year-old male presents emergency department stating that he has a history of CHF and COPD. Today he complains of shortness of breath for last 2 hours. Patient states he lays flat it gets worse she sits up it gets better. Patient denies any recent fever chills or cough. Patient states he does continue to smoke in fact today he was smoking when the ambulance pulled off. Patient states he also had chest pain in the chest pain remains at this time. Patient denies any abdominal pain patient denies nausea vomiting diarrhea. Patient denies any lightheadedness dizziness or near syncopal episode. (Abelardo Collins) - Related Data Home Medications Medication Instructions Recorded Confirmed Furosemide [Lasix] 40 mg PO TID 07/11/17 07/11/17 Isosorbide Mononitrate ER [Imdur] 15 mg PO DAILY 07/11/17 07/11/17 Previous Rx's Medication Instructions Recorded Losartan [Cozaar] 12.5 mg PO DAILY #30 tab 07/06/17 Metoprolol Tartrate [Lopressor] 25 mg PO BID #60 tab 07/06/17 hydrALAZINE HCL [Apresoline] 50 mg PO TID #90 tab 07/06/17 Allergies Allergy/AdvReac Type Severity Reaction Status Date / Time lisinopril AdvReac Swelling Verified 07/11/17 08:54 Review of Systems ROS Other: All systems not noted in ROS Statement are negative. <Abelardo Collins - Last Filed: 07/11/17 06:57> ROS Other: All systems not noted in ROS Statement are negative. <Abelardo España - Last Filed: 07/12/17 11:38> ROS Statement: Those systems with pertinent positive or pertinent negative responses have been documented in the HPI. Past Medical History Past Medical History: Heart Failure, COPD, Hypertension, Sleep Apnea/CPAP/BIPAP Additional Past Medical History / Comment(s): does not use a cpap/bipap History of Any Multi-Drug Resistant Organisms: None Reported Past Surgical History: No Surgical Hx Reported Past Psychological History: No Psychological Hx Reported Smoking Status: Current every day smoker Past Alcohol Use History: Occasional Past Drug Use History: Marijuana - Past Family History Mother Family Medical History: Myocardial Infarction (DC) Father History Unknown: Yes Sister(s) Family Medical History: COPD <Abelardo Collins - Last Filed: 07/11/17 06:57> General Exam Limitations: no limitations <Abelardo Collins - Last Filed: 07/11/17 06:57> General appearance: alert, in no apparent distress Head exam: Present: atraumatic, normocephalic, normal inspection Eye exam: Present: normal appearance, PERRL, EOMI. Absent: scleral icterus, conjunctival injection, periorbital swelling ENT exam: Present: normal exam, mucous membranes moist Neck exam: Present: normal inspection. Absent: tenderness, meningismus, lymphadenopathy Respiratory exam: Present: normal lung sounds bilaterally. Absent: respiratory distress, wheezes, rales, rhonchi, stridor Cardiovascular Exam: Present: regular rate, normal rhythm, normal heart sounds. Absent: systolic murmur, diastolic murmur, rubs, gallop, clicks GI/Abdominal exam: Present: soft, normal bowel sounds. Absent: distended, tenderness, guarding, rebound, rigid Extremities exam: Present: normal inspection, full ROM, normal capillary refill. Absent: tenderness, pedal edema, joint swelling, calf tenderness Back exam: Present: normal inspection Neurological exam: Present: alert, oriented X3, CN II-XII intact Psychiatric exam: Present: normal affect, normal mood Skin exam: Present: warm, dry, intact, normal color. Absent: rash <Abelardo España - Last Filed: 07/12/17 11:38> - General Exam Comments Initial Comments: GENERAL: Patient is well-developed and well-nourished. Patient is nontoxic and well- hydrated and is in mild distress. ENT: Neck is soft and supple. No significant lymphadenopathy is noted. Oropharynx is clear. Moist mucous membranes. Neck has full range of motion without eliciting any pain. EYES: The sclera were anicteric and conjunctiva were pink and moist. Extraocular movements were intact and pupils were equal round and reactive to light. Eyelids were unremarkable. PULMONARY: Unlabored respirations. Good breath sounds bilaterally. Lung bases have slight crackles.. CARDIOVASCULAR: There is a regular rate and rhythm without any murmurs gallops or rubs. ABDOMEN: Soft and nontender with normal bowel sounds. No palpable organomegaly was noted. There is no palpable pulsatile mass. SKIN: Skin is clear with no lesions or rashes and otherwise unremarkable. NEUROLOGIC: Patient is alert and oriented x3. Cranial nerves II through XII are grossly intact. Motor and sensory are also intact. Normal speech, volume and content. Symmetrical smile. MUSCULOSKELETAL: Normal extremities with adequate strength and full range of motion. 1+ LYMPHATICS: No significant lymphadenopathy is noted PSYCHIATRIC: Normal psychiatric evaluation. (Abelardo Collins) Vital Signs 07/11/17 07/11/17 07/11/17 05:45 06:12 07:17 Temperature 97.7 F Pulse Rate 80 71 64 Pulse Rate [ Pulse Oximetery ] Respiratory 18 18 16 Rate Blood Pressure 148/89 146/88 136/82 Blood Pressure [Right Arm Sitting] O2 Sat by Pulse 99 96 95 Oximetry 07/11/17 07/11/17 07/11/17 08:07 09:30 10:55 Temperature 97.6 F Pulse Rate 77 67 Pulse Rate [ 76 Pulse Oximetery ] Respiratory 16 19 18 Rate Blood Pressure 150/99 144/91 Blood Pressure 145/108 [Right Arm Sitting] O2 Sat by Pulse 97 98 95 Oximetry 07/11/17 14:01 Temperature Pulse Rate 69 Pulse Rate [ Pulse Oximetery ] Respiratory 19 Rate Blood Pressure 165/99 Blood Pressure [Right Arm Sitting] O2 Sat by Pulse 96 Oximetry Medical Decision Making - Lab Data Result diagrams: 07/11/17 05:59 07/11/17 05:59 <Abelardo Collins - Last Filed: 07/11/17 06:57> - Lab Data Result diagrams: 07/12/17 05:40 07/12/17 05:40 <Abelardo España - Last Filed: 07/12/17 11:38> - Medical Decision Making EKG shows normal sinus rhythm at 66 bpm OH interval is 192 QRS is 94 Q-T intervals 408 QTC is 427. Patient's EKG shows no ST segment elevation or depression. Dr. España will be taking over the care of this patient at 7 AM (Abelardo Collins) 51 male the ER for evaluation consideration of chest pain. Mild elevation of troponin, recent hospital admission for chest pain, patient will be admitted for cardiac observation anticoagulation (Abelardo España) - Lab Data Lab Results 07/11/17 07/11/17 07/11/17 Range/Units 05:59 05:59 05:59 WBC 7.7 (3.8-10.6) k/uL RBC 4.37 (4.30-5.90) m/uL Hgb 14.0 (13.0-17.5) gm/dL Hct 42.7 (39.0-53.0) % MCV 97.6 (80.0-100.0) fL MCH 32.0 (25.0-35.0) pg MCHC 32.8 (31.0-37.0) g/dL RDW 13.5 (11.5-15.5) % Plt Count 265 (150-450) k/uL D-Dimer (<0.60) mg/L FEU Sodium 143 (137-145) mmol/L Potassium 3.9 (3.5-5.1) mmol/L Chloride 109 H (98-107) mmol/L Carbon Dioxide 27 (22-30) mmol/L Anion Gap 7 mmol/L BUN 22 H (9-20) mg/dL Creatinine 1.25 (0.66-1.25) mg/dL Est GFR (MDRD) Af Amer >60 (>60 ml/min/1.73 sqM) Est GFR (MDRD) Non-Af >60 (>60 ml/min/1.73 sqM) Glucose 114 H (74-99) mg/dL Calcium 8.7 (8.4-10.2) mg/dL Magnesium 2.1 (1.6-2.3) mg/dL Total Bilirubin 1.7 H (0.2-1.3) mg/dL AST 37 (17-59) U/L ALT 64 (21-72) U/L Alkaline Phosphatase 102 (38-126) U/L Total Creatine Kinase 396 H (55-170) U/L CK-MB (CK-2) 8.6 H* (0.0-2.4) ng/mL CK-MB (CK-2) Rel Index 2.2 Troponin I 0.084 H* (0.000-0.034) ng/mL NT-Pro-B Natriuret Pep pg/mL Total Protein 5.3 L (6.3-8.2) g/dL Albumin 2.9 L (3.5-5.0) g/dL 07/11/17 07/11/17 Range/Units 05:59 05:59 WBC (3.8-10.6) k/uL RBC (4.30-5.90) m/uL Hgb (13.0-17.5) gm/dL Hct (39.0-53.0) % MCV (80.0-100.0) fL MCH (25.0-35.0) pg MCHC (31.0-37.0) g/dL RDW (11.5-15.5) % Plt Count (150-450) k/uL D-Dimer 0.21 (<0.60) mg/L FEU Sodium (137-145) mmol/L Potassium (3.5-5.1) mmol/L Chloride (98-107) mmol/L Carbon Dioxide (22-30) mmol/L Anion Gap mmol/L BUN (9-20) mg/dL Creatinine (0.66-1.25) mg/dL Est GFR (MDRD) Af Amer (>60 ml/min/1.73 sqM) Est GFR (MDRD) Non-Af (>60 ml/min/1.73 sqM) Glucose (74-99) mg/dL Calcium (8.4-10.2) mg/dL Magnesium (1.6-2.3) mg/dL Total Bilirubin (0.2-1.3) mg/dL AST (17-59) U/L ALT (21-72) U/L Alkaline Phosphatase (38-126) U/L Total Creatine Kinase (55-170) U/L CK-MB (CK-2) (0.0-2.4) ng/mL CK-MB (CK-2) Rel Index Troponin I (0.000-0.034) ng/mL NT-Pro-B Natriuret Pep 1820 pg/mL Total Protein (6.3-8.2) g/dL Albumin (3.5-5.0) g/dL Critical Care Time Critical Care Time: Yes Total Critical Care Time: 31 <Abelardo España - Last Filed: 07/12/17 11:38> Disposition <Abelardo Collins - Last Filed: 07/11/17 06:57> <Abelardo España - Last Filed: 07/12/17 11:38> Clinical Impression: Chest pain Disposition: ADMITTED IP TO THIS HOSP Condition: Serious
[2017-07-11] MEDS: ASPIRIN 81 MG PO STA ×2 (06:23→06:25)
[2017-07-11 06:36] LABS: ALT 64 U/L (21-72); AST 37 U/L (17-59); Albumin 2.9 g/dL (3.5-5.0); Alkaline Phosphatase 102 U/L (38-126); Anion Gap 7 mmol/L; Blood Urea Nitrogen 22 mg/dL (9-20); Calcium 8.7 mg/dL (8.4-10.2); Carbon Dioxide 27 mmol/L (22-30); Chloride 109 mmol/L (98-107); Glucose 114 mg/dL (74-99); Potassium 3.9 mmol/L (3.5-5.1); Sodium 143 mmol/L (137-145); Total Bilirubin 1.7 mg/dL (0.2-1.3); Total Protein 5.3 g/dL (6.3-8.2)
--- NOTE | 2017-07-11 06:52 | XR ---
EXAM: XR Chest, 2 Views CLINICAL HISTORY: ITS.REASON XR Reason: Pain TECHNIQUE: Frontal and lateral views of the chest. COMPARISON: Chest x-ray dated 07/03/2017. FINDINGS: Lungs: Reidentified and slightly worsened prominent perihilar opacities and peribronchial thickening. Pleural space: Unremarkable. No pneumothorax. Heart: Severe cardiomegaly. Mediastinum: Unremarkable. Bones/joints: Unremarkable. IMPRESSION: Reidentified and slightly worsened prominent perihilar opacities and peribronchial thickening. This is most compatible with pulmonary congestion.
[2017-07-11 07:05] LABS: Creatine Kinase MB 8.6 ng/mL (0.0-2.4); Troponin I 0.084 ng/mL (0.000-0.034)
[2017-07-11] MEDS ORDERED: HEPARIN SODIUM,PORCINE 5,000 UNIT/ML 1 ML VIAL IV ONE (08:18)
[2017-07-11] MEDS ORDERED: MORPHINE SULFATE 4 MG/ML SYRINGE IV PRN (08:18)
[2017-07-11] MEDS ORDERED: NITROGLYCERIN SL TABS 0.4 MG TAB SUBLINGUAL PRN (08:18)
[2017-07-11] MEDS: HEPARIN SOD,PORK IN 0.45% NACL 25,000 UNIT in 0.45% NACL 1 500ML.BAG IV SCH (09:37)
[2017-07-11 12:30] LABS: Creatine Kinase MB 7.2 ng/mL (0.0-2.4); Troponin I 0.071 ng/mL (0.000-0.034)
[2017-07-11] MEDS: FUROSEMIDE 10 MG/ML 4 ML VIAL IV SCH ×2 (13:57→21:18)
[2017-07-11] MEDS: METOPROLOL TARTRATE 25 MG TAB PO SCH ×2 (15:57→21:18)
[2017-07-11] MEDS: SPIRONOLACTONE 25 MG TAB PO SCH (16:03)
[2017-07-11 17:23] VITALS: BMI 34.3
[2017-07-11 20:07] LABS: Creatine Kinase MB 6.6 ng/mL (0.0-2.4); Troponin I 0.078 ng/mL (0.000-0.034)
[2017-07-11] MEDS: hydrALAZINE HCL 50 MG TAB PO SCH (21:18)
[2017-07-11] MEDS: HEPARIN SODIUM,PORCINE 5,000 UNIT/ML 1 ML VIAL IV PRN (21:31)
--- NOTE | 2017-07-11 21:34 | HP ---
HISTORY AND PHYSICAL DATE OF SERVICE: 07/11/2017 CHIEF COMPLAINT: Shortness of breath and chest pain. HISTORY OF PRESENT ILLNESS: This 51-year-old gentleman with a past history of COPD, CHF with possibly cardiomyopathy, ejection fraction about 20%, being followed by Dr. Storey in the outpatient setting was complaining of shortness of breath. The patient had more shortness of breath when lying down. The patient also had vague chest numbness and discomfort in the anterior part of the chest. Patient came to [facility] and was admitted for further evaluation and treatment. Chest x-ray showed prominent air spaces with features of CHF. There is no history of fever, rigors or chills. No history of headache, loss of consciousness or seizures. PAST MEDICAL HISTORY: History of COPD, CHF, history of cardiomyopathy, history of chest pain, sleep apnea. MEDICATIONS: Prior to admission include home medications: 1. Hydralazine 50 mg p.o. t.i.d. 2. Metoprolol 25 mg p.o. b.i.d. 3. Cozaar 12.5 mg daily. 4. Imdur 50 mg daily. 5. Lasix 40 mg p.o. t.i.d. ALLERGIES: LISINOPRIL. FAMILY HISTORY: History of myocardial infarction in the family. SOCIAL HISTORY: History of alcohol, history of THC, history of nicotine dependence. REVIEW OF SYSTEMS: ENT: No diminished vision. No diminished hearing. Cardiovascular: S1, S2. Respiratory: As mentioned earlier. GI: No nausea or vomiting. : No dysuria. Central nervous system: No numbness or weakness. ALLERGY/IMMUNOLOGY: No asthma or hayfever. Musculoskeletal: As mentioned earlier. Hematology/Oncology: No history of anemia. Endocrine: No history of diabetes or hypothyroidism. CONSTITUTIONAL: As mentioned earlier. Rheumatology: Negative. Dermatology: Negative. Psychiatric: As mentioned earlier. PHYSICAL EXAMINATION: The patient is alert and oriented x3. Pulse is 76, blood pressure 145/90, respiration 18, temperature 97.6, pulse ox 94% on room air. HEENT: Conjunctivae normal. Oral mucosa moist. Cardiovascular: S1, S2 muffled. Respiratory: Breath sounds diminished in the bases. A few scattered rhonchi and basal crackles. ABDOMEN: Soft, nontender. Nontender. No mass palpable. Legs bilateral leg edema. NERVOUS SYSTEM: Higher functions as mentioned earlier. Moves all four extremities. No focal deficits. Lymphatics: No lymph nodes palpable in the neck, axillae or groin. Skin no ulcer, rash or bleeding. LABS: CK 396, troponin 0.084, and albumin is 2.9. The previous troponin 0.114 almost similar. ASSESSMENT: 1. Shortness of breath with possible congestive heart failure acute exacerbation with acute on chronic systolic dysfunction ejection fraction 20%. 2. Chronic obstructive pulmonary disease. 3. Chest pain for unstable angina. 4. Troponin 0.084 indeterminate. 5. History of nicotine dependence. 6. History of hypertension. 7. History of sleep apnea. RECOMMENDATIONS AND DISCUSSION: In this 51-year-old gentleman who presented with multiple complex medical issues, we will monitor the patient closely, continue the current medications, continue with diuretics. Otherwise I would recommend cardiology consultation. Fluid and electrolytes balance closely. Heparin has been initiated. We will resume the home medications, symptomatic treatment. Smoking cessation has been advised. Otherwise, guarded prognosis because of multiple complex medical issues and further recommendations to follow. Please send a copy of this to Dr. Storey, who is the primary physician. MMODL / IJN: [id number] /
--- NOTE | 2017-07-11 23:46 | CONS ---
CONSULTATION HISTORY: Mr. Raymond is a 51-year-old gentleman who is seen in the emergency room with a complaint of shortness of breath. This patient has a known history of cardiomyopathy, he was recently in the hospital and went home. He was discharged from the hospital. Patient continues to have shortness of breath. He also complains of mild abdominal discomfort. The patient has been having orthopnea. He denies any chest pain. The patient denies any cough with expectoration. This patient has a history of chronic kidney disease, congestive heart failure, and hypertension. HOME MEDICATIONS: 1. Aspirin. 2. Zaroxolyn. 3. Lasix 60 mg b.i.d. 4. Imdur 15 mg daily. 5. Cozaar 12.5 mg daily. 6. Lopressor 25 mg b.i.d. 7. Apresoline 50 mg t.i.d. PAST MEDICAL HISTORY: Includes history of a heart failure, hypertension, COPD, and sleep apnea. SOCIAL HISTORY: Patient is currently an everyday smoker. The patient also has a history of smoking marijuana. FAMILY HISTORY: Includes a history of myocardial infarction. PHYSICAL EXAMINATION: At present reveals a 51-year-old gentleman who does not appear to be in any acute respiratory distress. The patient's blood pressure is 148/99, heart rate is 80 per minute. The patient is afebrile. Oxygen saturation is 99%. HEENT examination is negative. Neck is supple. The jugular venous pressure is elevated. Both the carotid pulses are felt. There is no bruit. Chest is symmetrical. Heart, the PMI is not felt. First and second heart sounds are normal. No significant murmurs are noted. Lungs reveal bilateral basilar rales. Abdomen is soft. Extremities have 1+ pedal edema. The patient's electrolytes are normal. Creatinine is 1.25, BUN is 22, hemoglobin is 14.2, troponin is 0.084. Last BNP level was 4500. Chest x-ray shows cardiomegaly without any significant pulmonary venous congestion. FINAL IMPRESSION: 1. This patient is admitted with symptoms of shortness of breath with a history of acute exacerbation of underlying chronic systolic heart failure. 2. History of hypertension. RECOMMENDATIONS: We will recommend to continue the patient on Lasix 40 mg IV b.i.d. I will add Aldactone 25 mg daily. Further adjustments in medications will be made as necessary. MMODL / IJN: [id number] /
[2017-07-12] MEDS: HEPARIN SODIUM,PORCINE 5,000 UNIT/ML 1 ML VIAL IV PRN (04:20)
[2017-07-12 06:27] LABS: Mean Platelet Volume 7.3; Platelet Count 259 k/uL (150-450)
[2017-07-12 06:34] LABS: Cholesterol 157 mg/dL (<200); HDL Cholesterol 43 mg/dL (40-60); LDL Cholesterol,Calculated 101 mg/dL (0-99); Triglycerides 65 mg/dL (<150)
[2017-07-12 08:58] LABS: Anion Gap 9 mmol/L; Blood Urea Nitrogen 22 mg/dL (9-20); Calcium 8.7 mg/dL (8.4-10.2); Carbon Dioxide 29 mmol/L (22-30); Chloride 104 mmol/L (98-107); Glucose 143 mg/dL (74-99); Potassium 3.6 mmol/L (3.5-5.1); Sodium 142 mmol/L (137-145)
[2017-07-12] MEDS ORDERED: ASPIRIN 325 MG TAB PO SCH (09:00)
--- NOTE | 2017-07-12 09:42 | P.PN ---
Progress Note - Text Patient admitted with heart failure exacerbation. Known nonischemic cardio myopathy and coronary angiography performed at [facility] several years back and was told that his coronary arteries were normal and that he did not need a stent. Known cardiac myopathy, chronic systolic dysfunction Elevated CPKs with borderline troponins Limited BMP Acute and chronic systolic heart failure exacerbation Plan Switch to carvedilol and maximize Start statins for nonischemic cardio myopathy and reduction in risk of sudden cardiac . Lipid panel noted and is results unrelated to this recommendation Switched to oral diuretics and continue spironolactone Consider ENTRESTO in the future if creatinine remains stable See full dictation by Dr. gan
[2017-07-12] MEDS: CARVEDILOL 3.125 MG TAB PO SCH ×2 (10:09→16:11)
[2017-07-12] MEDS: ASPIRIN 81 MG PO SCH (10:09)
[2017-07-12] MEDS: hydrALAZINE HCL 50 MG TAB PO SCH ×3 (10:09→21:51)
[2017-07-12] MEDS: ISOSORBIDE MONONITRATE ER 15 MG TAB PO SCH (10:10)
[2017-07-12] MEDS: SPIRONOLACTONE 25 MG TAB PO SCH (10:10)
[2017-07-12] MEDS: LOSARTAN 25 MG TAB PO SCH (10:10)
[2017-07-12] MEDS: FUROSEMIDE 10 MG/ML 4 ML VIAL IV SCH ×2 (10:10→19:50)
[2017-07-12] MEDS: HEPARIN SOD,PORK IN 0.45% NACL 25,000 UNIT in 0.45% NACL 1 500ML.BAG IV SCH (12:03)
--- NOTE | 2017-07-12 13:48 | P.PN ---
Subjective Progress Note Date: 07/12/17 Principal diagnosis: Shortness of breath This a 51-year-old -[place] gentleman who moved here from [place], presented to the hospital earlier last week, with symptoms of shortness of breath and was treated for congestive heart failure. He had an echo performed which revealed an LV function of 20%. According to the patient, while he was still living in [place] he did undergo a heart catheterization and was told to have normal coronary arteries at that time. He read presented to the hospital on this occasion with symptoms of shortness of breath. Patient states he was taking his medications on discharge here. Chest x-ray showed worsening pulmonary congestion. EKG showed a normal sinus rhythm with no acute changes. Patient was seen in consultation by Dr. VC Mcmahon and initiated on IV Lasix. has been diuresing well on IV Lasix. Sodium 142, potassium 3.6, chloride 104, CO2 29, BUN 22, creatinine 1.2. Patient was noted on the monitor to have several pauses, as well as runs of nonsustained ventricular tachycardia. We will discontinue the Lopressor today and start the patient on Coreg. Blood pressure this morning 140/98. Objective - Vital Signs Vital signs: Vital Signs Temp 96.9 F L 07/12/17 11:00 Pulse 75 07/12/17 11:00 Resp 16 07/12/17 11:00 BP 135/89 07/12/17 11:00 Pulse Ox 97 07/12/17 11:00 Intake & Output 07/11/17 07/12/17 07/12/17 18:59 06:59 18:59 Intake Total 236 1080.000 240 Output Total 2600 300 Balance -2364 1080.000 -60 Weight 127.91 kg 128.5 kg Intake: IV 100 0.9 100 Intake, IV Titration 500.000 Amount Heparin Sod,Pork in 0.45% 500.000 NaCl 25,000 unit In 0.45 % NaCl 1 500ml.bag @ 7.8 UNITS/KG/HR 19.95 mls/hr IV .Q24H [facility] Rx#: [id number] Oral 236 480 240 Output: Urine 2600 300 Other: Voiding Method Toilet Urinal # Voids 4 1 - Exam PHYSICAL EXAMINATION: HEENT: Head is atraumatic, normocephalic. Pupils equal, round. Neck is supple. There is no elevated jugular venous pressure. HEART EXAMINATION: Heart S1, S2 systolic murmur is heard. CHEST EXAMINATION: Lungs are clear to auscultation and precussion. No chest wall tenderness is noted on palpation or with deep breathing. ABDOMEN: Soft, nontender. Bowel sounds are heard. No organomegaly noted. EXTREMITIES: 2+ peripheral pulses with no evidence of peripheral edema and no calf tenderness noted. NEUROLOGIC patient is awake, alert and oriented -3. . - Labs CBC & Chem 7: 07/12/17 05:40 07/12/17 05:40 Labs: Abnormal Lab Results - Last 24 Hours (Table) 07/11/17 07/12/17 07/12/17 Range/Units 18:38 05:40 05:40 APTT (22.0-30.0) sec BUN 22 H (9-20) mg/dL Creatinine 1.28 H (0.66-1.25) mg/dL Glucose 143 H (74-99) mg/dL Total Creatine Kinase 305 H (55-170) U/L CK-MB (CK-2) 6.6 H* (0.0-2.4) ng/mL Troponin I 0.078 H* (0.000-0.034) ng/mL LDL Cholesterol, Calc 101 H (0-99) mg/dL 07/12/17 Range/Units 12:57 APTT 45.7 H (22.0-30.0) sec BUN (9-20) mg/dL Creatinine (0.66-1.25) mg/dL Glucose (74-99) mg/dL Total Creatine Kinase (55-170) U/L CK-MB (CK-2) (0.0-2.4) ng/mL Troponin I (0.000-0.034) ng/mL LDL Cholesterol, Calc (0-99) mg/dL Assessment and Plan Plan: Assessment and plan #1 systolic congestive heart failure acute on chronic #2 cardiomyopathy, nonischemic #3 hypertension #4 acute on chronic kidney disease #5 COPD #6 nicotine dependence Plan We will discontinue the patient's Lopressor and start him on Coreg today. Continue current dose of IV Lasix, monitoring intake and output along with daily weights. Daily lytes BUN and creatinine. DNP note has been reviewed, I agree with a documented findings and plan of care. Patient was seen and examined.
[2017-07-12] MEDS ORDERED: MORPHINE ORAL SOLN 10 MG/5 ML CUP PO PRN (14:52)
[2017-07-12] MEDS: ATORVASTATIN 20 MG TAB PO SCH (19:22)
--- NOTE | 2017-07-12 20:17 | PN ---
PROGRESS NOTE DATE OF SERVICE: 07/12/2017. INTERVAL HISTORY: This is a 51-year-old gentleman was admitted with CHF with acute on chronic systolic dysfunction, being closely followed with Cardiology. The previous cardiac catheterization was normal. No chest pain. No palpitations. No fever. EXAM: Alert and oriented times three. Pulse 75, blood pressure 125/89, respiration 16, temperature is 97.9, pulse ox 97% on room air. HEENT: Conjunctivae normal. Neck: No jugular venous distention. Cardiovascular: S1, S2. Respiratory: Breath sounds diminished in the bases. A few scattered rhonchi. No crackles. Abdomen is soft, nontender. Legs are no edema, no swelling. Central nervous system: No focal deficits. LAB: Creatinine 1.28. Troponin 0.078. ASSESSMENT: 1. Shortness of breath with congestive heart failure acute exacerbation with acute on chronic systolic dysfunction, ejection fraction 20% with possible cardiomyopathy. 2. Chronic obstructive pulmonary disease. 3. Chest pain with possible unstable angina. 4. Troponin 0.084, indeterminate. 5. History of nicotine dependence. 6. Hypertensive. 7. Sleep apnea. RECOMMENDATIONS AND DISCUSSION: Recommend to continue current medications, symptomatic treatment, management and continue with the medications. Repeat labs. Guarded prognosis because of multiple complex medical issues. Further recommendations to follow. MMODL / IJN: [id number] /
[2017-07-12] MEDS: guaiFENesin 600 MG TABLET.ER PO SCH (21:51)
[2017-07-13] MEDS: HEPARIN SOD,PORK IN 0.45% NACL 25,000 UNIT in 0.45% NACL 1 500ML.BAG IV SCH (04:11)
[2017-07-13 06:00] LABS: Basophils # (A) 0.1 k/uL (0-0.2); Basophils % (A) 1 %; Eosinophils # (A) 0.4 k/uL (0-0.7); Eosinophils % (A) 7 %; HCT 41.6 % (39.0-53.0); Lymphocytes # (A) 1.3 k/uL (1.0-4.8); Lymphocytes % (A) 22 %; MCH 31.8 pg (25.0-35.0); MCHC 33.6 g/dL (31.0-37.0); MCV 94.7 fL (80.0-100.0); Mean Platelet Volume 7.2; Monocytes # (A) 0.3 k/uL (0-1.0); Monocytes % (A) 5 %; Neutrophils # (A) 3.8 k/uL (1.3-7.7); Neutrophils % (A) 63 %; Platelet Count 248 k/uL (150-450); RBC 4.39 m/uL (4.30-5.90); RDW 13.4 % (11.5-15.5); WBC 6.1 k/uL (3.8-10.6)
[2017-07-13 06:17] LABS: Anion Gap 9 mmol/L; Blood Urea Nitrogen 17 mg/dL (9-20); Calcium 8.7 mg/dL (8.4-10.2); Carbon Dioxide 29 mmol/L (22-30); Chloride 105 mmol/L (98-107); Glucose 121 mg/dL (74-99); Potassium 3.7 mmol/L (3.5-5.1); Sodium 143 mmol/L (137-145)
[2017-07-13] MEDS: CARVEDILOL 3.125 MG TAB PO SCH ×2 (06:27→16:13)
[2017-07-13] MEDS: SPIRONOLACTONE 25 MG TAB PO SCH ×2 (07:55→20:30)
[2017-07-13] MEDS: LOSARTAN 25 MG TAB PO SCH (07:55)
[2017-07-13] MEDS: ASPIRIN 81 MG PO SCH (07:55)
[2017-07-13] MEDS: hydrALAZINE HCL 50 MG TAB PO SCH ×3 (07:55→20:30)
[2017-07-13] MEDS: guaiFENesin 600 MG TABLET.ER PO SCH ×2 (07:55→20:30)
[2017-07-13] MEDS: FUROSEMIDE 10 MG/ML 4 ML VIAL IV SCH ×2 (07:56→20:30)
[2017-07-13] MEDS: ISOSORBIDE MONONITRATE ER 15 MG TAB PO SCH (07:56)
--- NOTE | 2017-07-13 10:48 | P.PN ---
Subjective Progress Note Date: 07/13/17 Principal diagnosis: Shortness of breath This a 51-year-old -Monegasque gentleman who moved here from [place], presented to the hospital earlier last week, with symptoms of shortness of breath and was treated for congestive heart failure. He had an echo performed which revealed an LV function of 20%. According to the patient, while he was still living in [place] he did undergo a heart catheterization and was told to have normal coronary arteries at that time. He read presented to the hospital on this occasion with symptoms of shortness of breath. Patient states he was taking his medications on discharge here. Chest x-ray showed worsening pulmonary congestion. EKG showed a normal sinus rhythm with no acute changes. Patient was seen in consultation by Dr. VC Mcmahon and initiated on IV Lasix. has been diuresing well on IV Lasix. Sodium 142, potassium 3.6, chloride 104, CO2 29, BUN 22, creatinine 1.2. Patient was noted on the monitor to have several pauses, as well as runs of nonsustained ventricular tachycardia. We will discontinue the Lopressor today and start the patient on Coreg. Blood pressure this morning 140/98. 07/13/2017 Patient was seen and examined this morning, he's been up ambulating in the hallway most of the day. Breathing is improving significantly. He continues to have episodes of pauses on the monitor, his beta danae was changed over to Coreg 3.125 twice a day yesterday. His weight today is down 1 kg.CBC normal. Sodium 143, potassium 3.7, BUN 17, creatinine 1.2.blood pressure 134/80 with a heart rate in the 60s. We will increase the dose of losartan to 25 mg daily, increase Aldactone to 25 twice a day. Objective - Vital Signs Vital signs: Vital Signs Temp 97.7 F 07/13/17 08:05 Pulse 68 07/13/17 08:05 Resp 16 07/13/17 08:05 BP 134/80 07/13/17 08:05 Pulse Ox 95 07/13/17 08:05 Intake & Output 07/12/17 07/13/17 07/13/17 18:59 06:59 18:59 Intake Total 880 500 477.084 Output Total 950 1200 Balance -70 -700 477.084 Weight 127.1 kg Intake: Intake, IV Titration 500 117.084 Amount Heparin Sod,Pork in 0.45% 500 117.084 NaCl 25,000 unit In 0.45 % NaCl 1 500ml.bag @ 7.8 UNITS/KG/HR 19.95 mls/hr IV .Q24H [facility] Rx#: [id number] Oral 880 360 Output: Urine 950 1200 Other: Voiding Method Toilet Toilet Urinal Urinal # Voids 1 - Exam PHYSICAL EXAMINATION: HEENT: Head is atraumatic, normocephalic. Pupils equal, round. Neck is supple. There is no elevated jugular venous pressure. HEART EXAMINATION: Heart S1, S2 systolic murmur is heard. CHEST EXAMINATION: Lungs are clear to auscultation and precussion. No chest wall tenderness is noted on palpation or with deep breathing. ABDOMEN: Soft, nontender. Bowel sounds are heard. No organomegaly noted. EXTREMITIES: 2+ peripheral pulses with trace evidence of peripheral edema and no calf tenderness noted. NEUROLOGIC patient is awake, alert and oriented -3. . - Labs CBC & Chem 7: 07/13/17 05:26 07/13/17 05:26 Labs: Abnormal Lab Results - Last 24 Hours (Table) 07/12/17 07/13/17 07/13/17 Range/Units 12:57 05:26 05:26 APTT 45.7 H 37.1 H (22.0-30.0) sec Glucose 121 H (74-99) mg/dL Assessment and Plan Plan: Assessment and plan #1 systolic congestive heart failure acute on chronic #2 cardiomyopathy, nonischemic #3 hypertension #4 acute on chronic kidney disease #5 COPD #6 nicotine dependence Plan from cardiology's perspective, we will increase losartan to 25 mg daily, increase Aldactone to 25 mg twice a day. Check lytes BUN and creatinine in the morning.it has been explained to the patient, once his heart failure clears he will need to have a cardiac catheterization to rule out underlying coronary artery disease in spite of the fact that multiple years ago he had a heart cath. We will continue to monitor the patient, he is having episodes of pauses. DNP note has been reviewed, I agree with a documented findings and plan of care. Patient was seen and examined.
[2017-07-13] MEDS: ATORVASTATIN 20 MG TAB PO SCH (16:13)
--- NOTE | 2017-07-13 18:04 | P.PN ---
Subjective Progress Note Date: 07/13/17 Progress note being dictated for Dr. Oliveira. Interval history: Is a 51-year-old gentleman admitted with acute exacerbation of CHF and multiple other medical issues. Telemetry reporting sinus bradycardia to sinus rhythm/pauses, heart rates ranging from 27 to 60s. Asymptomatic. Metoprolol discontinued with Coreg added to med regime yesterday , losartan and Aldactone increased today as per cardiology. Ambulating in the jones, tolerating exertion well. Diuresing well on Lasix IV push with 24-hour I& O reflecting a negative fluid balance. Renal function mildly improved. Denies chest pain, palpitations or increasing shortness of breath. Denies lightheadedness dizziness or focal deficits. Objective - Vital Signs Vital signs: Vital Signs Temp 97.6 F 07/13/17 11:02 Pulse 72 07/13/17 11:02 Resp 16 07/13/17 11:02 BP 127/79 07/13/17 11:02 Pulse Ox 99 07/13/17 11:02 Intake & Output 07/12/17 07/13/17 07/13/17 18:59 06:59 18:59 Intake Total 880 500 477.084 Output Total 950 1200 Balance -70 -700 477.084 Weight 127.1 kg Intake: Intake, IV Titration 500 117.084 Amount Heparin Sod,Pork in 0.45% 500 117.084 NaCl 25,000 unit In 0.45 % NaCl 1 500ml.bag @ 7.8 UNITS/KG/HR 19.95 mls/hr IV .Q24H [facility] Rx#: [id number] Oral 880 360 Output: Urine 950 1200 Other: Voiding Method Toilet Toilet Urinal Urinal # Voids 1 - Exam PHYSICAL EXAM: VITAL SIGNS: [As above] GENERAL: Sitting up in bed, no acute distress HEENT: Conjunctivae normal. eyes normal. Oral mucosa moist NECK: No JVD. No thyroid enlargement. No LNs CARDIOVASCULAR: S1, S2 muffled. Systolic murmur RESPIRATION: Breath sounds diminished in the bases. ABDOMEN: Soft, nontender . No guarding. no masses palpable. Bowel sounds heard. LEGS: trace edema. PSYCHIATRY: Alert and oriented -3, mood and affect normal. NERVOUS SYSTEM: Cranial N 2-12 grossly normal. Moves all 4 limbs. Diffuse weakness No focal deficits. Skin: no ulcer no rash Joints: No active swelling. No inflammation. Lymphatic system. No LN neck axilla or groin. - Labs CBC & Chem 7: 07/13/17 05:26 07/13/17 05:26 Labs: Abnormal Lab Results - Last 24 Hours (Table) 07/12/17 07/13/17 07/13/17 Range/Units 12:57 05:26 05:26 APTT 45.7 H 37.1 H (22.0-30.0) sec Glucose 121 H (74-99) mg/dL Assessment and Plan Assessment: 1. Acute on chronic CHF exacerbation, systolic dysfunction, EF 20% with nonischemic cardiomyopathy 2. COPD 3. Chest pain possible unstable angina 4. Troponin 0.084, indeterminate 5. nicotine dependence 6. Hypertension 7. Sleep apnea Plan: Continue on current medication regime ,monitoring and symptomatic treatment. Close monitoring of electrolytes with repeat labs ordered for a.m. Follow closely with cardiology. Prognosis guarded given multiple complex medical issues. The impression and plan of care has been dictated as directed. : I performed a history and examination of this patient, discussed the same with the dictator. I agree with the dictator's note ,documented as a scribe. Any additional findings or plans will be noted.
[2017-07-13 20:40] VITALS: RESP 17
[2017-07-14 06:16] LABS: Basophils # (A) 0.1 k/uL (0-0.2); Basophils % (A) 1 %; Eosinophils # (A) 0.4 k/uL (0-0.7); Eosinophils % (A) 7 %; HCT 44.3 % (39.0-53.0); HGB 15.2 gm/dL (13.0-17.5); Lymphocytes # (A) 1.3 k/uL (1.0-4.8); Lymphocytes % (A) 20 %; MCH 32.4 pg (25.0-35.0); MCHC 34.3 g/dL (31.0-37.0); MCV 94.5 fL (80.0-100.0); Mean Platelet Volume 7.4; Monocytes # (A) 0.3 k/uL (0-1.0); Monocytes % (A) 5 %; Neutrophils # (A) 4.2 k/uL (1.3-7.7); Neutrophils % (A) 65 %; Platelet Count 270 k/uL (150-450); RBC 4.68 m/uL (4.30-5.90); RDW 13.5 % (11.5-15.5); WBC 6.5 k/uL (3.8-10.6)
[2017-07-14] MEDS: CARVEDILOL 3.125 MG TAB PO SCH (06:28)
[2017-07-14 06:32] LABS: Calcium 9.4 mg/dL (8.4-10.2); Potassium 4.2 mmol/L (3.5-5.1)
[2017-07-14] MEDS: FUROSEMIDE 10 MG/ML 4 ML VIAL IV SCH (08:57)
[2017-07-14] MEDS: ASPIRIN 81 MG PO SCH (08:57)
[2017-07-14] MEDS: ISOSORBIDE MONONITRATE ER 15 MG TAB PO SCH (08:57)
[2017-07-14] MEDS: hydrALAZINE HCL 50 MG TAB PO SCH (08:57)
[2017-07-14] MEDS: SPIRONOLACTONE 25 MG TAB PO SCH (08:57)
[2017-07-14] MEDS: guaiFENesin 600 MG TABLET.ER PO SCH (08:57)
[2017-07-14] MEDS ORDERED: LOSARTAN 25 MG TAB PO SCH (09:00)
[2017-07-14 09:03] VITALS: TEMP 96.5
[2017-07-14] MEDS ORDERED: LOSARTAN 50 MG TAB PO SCH (09:15)
--- NOTE | 2017-07-14 10:38 | P.PN ---
Subjective Progress Note Date: 07/14/17 Principal diagnosis: Shortness of breath This a 51-year-old -Sy[place] gentleman who moved here from [place], presented to the hospital earlier last week, with symptoms of shortness of breath and was treated for congestive heart failure. He had an echo performed which revealed an LV function of 20%. According to the patient, while he was still living in [place] he did undergo a heart catheterization and was told to have normal coronary arteries at that time. He read presented to the hospital on this occasion with symptoms of shortness of breath. Patient states he was taking his medications on discharge here. Chest x-ray showed worsening pulmonary congestion. EKG showed a normal sinus rhythm with no acute changes. Patient was seen in consultation by Dr. VC Mcmahon and initiated on IV Lasix. has been diuresing well on IV Lasix. Sodium 142, potassium 3.6, chloride 104, CO2 29, BUN 22, creatinine 1.2. Patient was noted on the monitor to have several pauses, as well as runs of nonsustained ventricular tachycardia. We will discontinue the Lopressor today and start the patient on Coreg. Blood pressure this morning 140/98. 07/13/2017 Patient was seen and examined this morning, he's been up ambulating in the hallway most of the day. Breathing is improving significantly. He continues to have episodes of pauses on the monitor, his beta danae was changed over to Coreg 3.125 twice a day yesterday. His weight today is down 1 kg.CBC normal. Sodium 143, potassium 3.7, BUN 17, creatinine 1.2.blood pressure 134/80 with a heart rate in the 60s. We will increase the dose of losartan to 25 mg daily, increase Aldactone to 25 twice a day. 07/14/2017 Patient seen and examined this morning, breathing is significantly improved. Weight is down 3 kg today. Blood pressure 150/90 heart rate in the 70s. We will increase the losartan to 50 mg daily, check a TSH, increase Aldactone to 50 mg daily. We will also discontinue the IV Lasix and start the patient on Lasix 40 mg by mouth daily. Plan for possible discharge home in 24 hours if stable. Objective - Vital Signs Vital signs: Vital Signs Temp 96.5 F L 07/14/17 08:00 Pulse 77 07/14/17 08:00 Resp 17 07/14/17 04:00 BP 150/99 07/14/17 08:00 Pulse Ox 93 L 07/14/17 08:00 Intake & Output 07/13/17 07/14/17 07/14/17 18:59 06:59 18:59 Intake Total 1077.084 10 360 Output Total 1000 2750 Balance 77.084 -2740 360 Weight 125 kg Intake: IV 10 Invasive Line 1 10 Intake, IV Titration 117.084 Amount Heparin Sod,Pork in 0.45% 117.084 NaCl 25,000 unit In 0.45 % NaCl 1 500ml.bag @ 7.8 UNITS/KG/HR 19.95 mls/hr IV .Q24H [facility] Rx#: [id number] Oral 960 360 Output: Urine 1000 2750 Other: Voiding Method Toilet Toilet Urinal Urinal # Voids 1 - Exam PHYSICAL EXAMINATION: HEENT: Head is atraumatic, normocephalic. Pupils equal, round. Neck is supple. There is no elevated jugular venous pressure. HEART EXAMINATION: Heart S1, S2 systolic murmur is heard. CHEST EXAMINATION: Lungs are clear to auscultation and precussion. No chest wall tenderness is noted on palpation or with deep breathing. ABDOMEN: Soft, nontender. Bowel sounds are heard. No organomegaly noted. EXTREMITIES: 2+ peripheral pulses with trace evidence of peripheral edema and no calf tenderness noted. NEUROLOGIC patient is awake, alert and oriented -3. . - Labs CBC & Chem 7: 07/14/17 05:56 07/14/17 05:56 Labs: Abnormal Lab Results - Last 24 Hours (Table) 07/14/17 Range/Units 05:56 Glucose 115 H (74-99) mg/dL Assessment and Plan Plan: Assessment and plan #1 systolic congestive heart failure acute on chronic #2 cardiomyopathy, nonischemic #3 hypertension #4 acute on chronic kidney disease #5 COPD #6 nicotine dependence Plan From cardiology's perspective, we will increase the losartan to 50 mg daily, check a TSH level, increase Aldactone to 50 mg daily, discontinue IV Lasix and start the patient on Lasix 40 mg by mouth daily. Plan for possible discharge home in 24 hours if stable. DNP note has been reviewed, I agree with a documented findings and plan of care. Patient was seen and examined.
[2017-07-14 12:28] VITALS: BP 129/80; PULSE 74
--- NOTE | 2017-07-14 22:55 | DS ---
DISCHARGE SUMMARY FINAL DIAGNOSES: 1. Congestive heart failure acute exacerbation with [id number] systolic dysfunction, ejection fraction 20%. 2. Possible nonischemic cardiomyopathy. 3. Chronic obstructive pulmonary disease. 4. Chest pain with possible unstable angina. 5. Troponin 0.084, indeterminate. 6. History of nicotine dependence. 7. Hypertensive. 8. Sleep apnea. DISCHARGE DISPOSITION: The patient is being discharged in stable condition with guarded prognosis. Cardiology cleared the patient for discharge. HISTORY OF PRESENT ILLNESS: This 51-year-old gentleman with a past history of multiple medical problems was being followed by Dr. Storey in the outpatient setting was admitted with shortness of breath and CHF acute exacerbation was treated symptomatically. Cardiology saw the patient. The patient improved significantly. Cardiology cleared the patient for discharge. The patient will be discharged in a stable condition with guarded prognosis. DISCHARGE INSTRUCTIONS: 1. Cardiac diet. 2. Activity limited until follow up. 3. Follow up with Dr. Storey in 2-3 days. 4. Follow up with Dr. Jonah Cruz and Dr. Wick as advised. MEDICATIONS: 1. Aspirin 81 mg p.o. daily. 2. Lipitor 20 mg daily. 3. Coreg 3.125 mg p.o. b.i.d. 4. Lasix 80 mg p.o. daily. 5. Mucinex 1200 mg p.o. b.i.d. 6. Apresoline 50 mg t.i.d. 7. Imdur ER 50 mg b.i.d. 8. Cozaar 50 mg b.i.d. 9. Aldactone 50 mg p.o. daily. Follow up labs with Dr. Storey and Cardiology. Once again, the patient will be discharged in stable condition with guarded prognosis. MMODL / IJN: [id number] /
[2017-07-15] MEDS ORDERED: SPIRONOLACTONE 25 MG TAB PO SCH (09:00)
[2017-07-15] MEDS ORDERED: FUROSEMIDE 80 MG TAB PO SCH (09:00)
== END 2017-07-14 17:14 | disposition home or self-care (01) | DRG 291 ==
LOC: EC 05:42 → 6SEL 08:18 → OBSVTOIN 07-12 20:01 → 6SEL 07-14 17:14
PROVIDERS: ADMIT Hospitalist; ATTEND Hospitalist
DX: I13.0 Hypertensive heart and chronic kidney disease with heart failure and stage 1 through stage 4 chronic kidney disease, or unspecified chronic kidney disease (principal); I50.23 Acute on chronic systolic (congestive) heart failure; I47.2 Ventricular tachycardia; N17.9 Acute kidney failure, unspecified; I42.8 Other cardiomyopathies; I20.0 Unstable angina; F17.200 Nicotine dependence, unspecified, uncomplicated; G47.30 Sleep apnea, unspecified; J44.9 Chronic obstructive pulmonary disease, unspecified; N18.9 Chronic kidney disease, unspecified; Z79.899 Other long term (current) drug therapy; Z82.49 Family history of ischemic heart disease and other diseases of the circulatory system; Z82.5 Family history of asthma and other chronic lower respiratory diseases; R74.8 Abnormal levels of other serum enzymes; Z79.82 Long term (current) use of aspirin
CPT/HCPCS: 36415; 71046; 80048; 80053; 80061; 82550; 82553; 83735; 83880; 84443; 84484; 85025; 85027; 85049; 85379; 85730; 93005; 96365; 96366; 96375; 96376; 99291

== ENCOUNTER 2017-09-12 06:29 | Emergency (ER) | payer OTHER ==
[2017-09-12 06:35] VITALS: TEMP 98
--- NOTE | 2017-09-12 07:13 | XR ---
EXAMINATION TYPE: XR hand complete LT, XR wrist complete LT , 7 VIEWS DATE OF EXAM ORDERED: 09/12/2017 HISTORY: Pain. COMPARISON: None. FINDINGS: There is slight swelling over the dorsum of the hand. No fracture, dislocation or other ac gio osseous lesion is seen. There are mild degenerative changes in the first carpometacarpal joint. IMPRESSION: 1. NO ACUTE OSSEOUS LESION. 2. DEGENERATIVE CHANGE, LEFT FIRST CARPOMETACARPAL JOINT.
[2017-09-12] MEDS ORDERED: KETOROLAC 60 MG/2 ML VIAL IM STA (07:40)
--- NOTE | 2017-09-12 07:58 | ED ---
General Adult HPI - General Chief complaint: Extremity Injury, Upper Stated complaint: Hand Injury Time Seen by Provider: 09/12/17 07:00 Source: patient, RN notes reviewed Mode of arrival: ambulatory Limitations: no limitations - History of Present Illness Initial comments: This is a 51-year-old male who presents to the emergency department complaining of left first metacarpal pain as well as left wrist pain. Patient states he fell approximate one week ago and it's been hurting ever since. Patient denies any finger pain. Patient denies any forearm pain or elbow pain. Patient denies any other injury at this time. Patient does note that the area is mildly swollen. - Related Data Home Medications Medication Instructions Recorded Confirmed Isosorbide Mononitrate ER [Imdur] 15 mg PO DAILY 07/11/17 07/11/17 Previous Rx's Medication Instructions Recorded hydrALAZINE HCL [Apresoline] 50 mg PO TID #90 tab 07/06/17 Aspirin 81 mg PO DAILY chew 07/14/17 Atorvastatin [Lipitor] 20 mg PO DAILY@1800 #30 tab 07/14/17 Carvedilol [Coreg] 3.125 mg PO BID-W/MEALS #60 tab 07/14/17 Furosemide [Lasix] 80 mg PO DAILY #30 tab 07/14/17 Losartan [Cozaar] 50 mg PO DAILY #30 tab 07/14/17 Spironolactone [Aldactone] 50 mg PO DAILY #30 tab 07/14/17 guaiFENesin [Mucinex] 1,200 mg PO Q12HR tablet.er 07/14/17 Ibuprofen [Motrin] 600 mg PO Q6HR PRN #20 tab 09/12/17 Allergies Allergy/AdvReac Type Severity Reaction Status Date / Time lisinopril AdvReac Swelling Verified 09/12/17 06:35 Review of Systems ROS Statement: Those systems with pertinent positive or pertinent negative responses have been documented in the HPI. ROS Other: All systems not noted in ROS Statement are negative. Past Medical History Past Medical History: Chest Pain / Angina, Heart Failure, COPD, Hypertension, Sleep Apnea/CPAP/BIPAP Additional Past Medical History / Comment(s): does not use a cpap/bipap, History of Any Multi-Drug Resistant Organisms: None Reported Past Surgical History: No Surgical Hx Reported Past Psychological History: No Psychological Hx Reported Smoking Status: Current every day smoker Past Alcohol Use History: Occasional Past Drug Use History: Marijuana - Past Family History Mother Family Medical History: Myocardial Infarction ([place]) Father History Unknown: Yes Sister(s) Family Medical History: COPD General Exam - General Exam Comments Initial Comments: GENERAL Patient is well-developed and well-nourished. Patient is in mild distress. EYES Patient's pupils are equal and round. Extraocular motion is intact SKIN Unremarkable NEURO The patient is alert and oriented 3 PYSCH Patient has normal interpersonal interactions. MUSCULOSKELETAL Patient's first metacarpal is tender to palpation. As is the scaphoid area on his left wrist. Limitations: no limitations Course Vital Signs 09/12/17 06:32 Temperature 98.0 F Pulse Rate 94 Respiratory 20 Rate Blood Pressure 139/80 O2 Sat by Pulse 95 Oximetry Procedures - Orthopedic Splinting/Casting Injury #1 Side: left Upper Extremity Injury Location: short arm Upper Extremity Immobilizer: thumb spica Medical Decision Making - Medical Decision Making X-rays of his wrist and hand showed no obvious fracture however the patient is tender in the scaphoid region so we will be placed in a thumb spica splint on him and have him follow-up with orthopedic. Disposition Clinical Impression: Occult fracture of scaphoid Disposition: HOME SELF-CARE Condition: Good Instructions: Scaphoid Fracture (ED) Prescriptions: Ibuprofen [Motrin] 600 mg PO Q6HR PRN #20 tab PRN Reason: For pain Is patient prescribed a controlled substance at d/c from ED?: No Referrals: None,Stated [Primary Care Provider] - 1-2 days Yomi Rubio MD [STAFF PHYSICIAN] - 1-2 days Time of Disposition: 07:56
[2017-09-12 08:05] VITALS: BP 158/86; PULSE 75; RESP 18
== END 2017-09-12 08:09 | disposition home or self-care (01) ==
LOC: EC 06:29
DX: S62.002A Unspecified fracture of navicular [scaphoid] bone of left wrist, initial encounter for closed fracture (principal); I11.0 Hypertensive heart disease with heart failure; I50.9 Heart failure, unspecified; G47.30 Sleep apnea, unspecified; Z99.89 Dependence on other enabling machines and devices; F17.200 Nicotine dependence, unspecified, uncomplicated; Z79.899 Other long term (current) drug therapy; Z88.8 Allergy status to other drugs, medicaments and biological substances; W19.XXXA Unspecified fall, initial encounter
CPT/HCPCS: 99283 ×2; 29125 ×2; 96372 ×2; 73110; 73130; J1885

== ENCOUNTER 2017-09-13 19:22 | Emergency (ER) | payer OTHER ==
[2017-09-13 19:31] VITALS: RESP 18
--- NOTE | 2017-09-13 20:48 | ED ---
Recheck HPI - General Chief Complaint: Recheck/Abnormal Lab/Rx Stated Complaint: med refill/SOB Time Seen by Provider: 09/13/17 20:20 Source: patient, RN notes reviewed Mode of arrival: ambulatory Limitations: no limitations - History of Present Illness Initial Comments: This is a 51-year-old male who presents to the emergency department with chief complaint of shortness of breath and requests to have medications refilled. Patient states he has a history of COPD and heart failure. He states that he currently does not have a primary care provider and needs several medications refilled. He states he needs losartan, Lipitor, Lasix and Imdur refilled. Patient also states that throughout the day today he has noticed an increase in shortness of breath with exertion. Denies fevers or chills, cough, chest pain, abdominal pain, nausea or vomiting, diarrhea or constipation, headache or dizziness, or increasing pedal edema. - Related Data Home Medications Medication Instructions Recorded Confirmed Carvedilol [Coreg] 6.25 mg PO BID 09/13/17 09/13/17 Spironolactone [Aldactone] 25 mg PO DAILY 09/13/17 09/13/17 hydrALAZINE HCL [Apresoline] 50 mg PO TID PRN 09/13/17 09/13/17 Previous Rx's Medication Instructions Recorded Atorvastatin Calcium [Lipitor] 20 mg PO DAILY #30 tab 09/13/17 Furosemide [Lasix] 80 mg PO DAILY #30 tablet 09/13/17 Isosorbide Mononitrate ER [Imdur] 15 mg PO DAILY #30 dose 09/13/17 Losartan [Cozaar] 50 mg PO DAILY #30 tab 09/13/17 Allergies Allergy/AdvReac Type Severity Reaction Status Date / Time lisinopril Allergy Anaphylaxis Verified 09/13/17 20:43 Review of Systems ROS Statement: Those systems with pertinent positive or pertinent negative responses have been documented in the HPI. ROS Other: All systems not noted in ROS Statement are negative. Past Medical History Past Medical History: Chest Pain / Angina, Heart Failure, COPD, Hypertension, Sleep Apnea/CPAP/BIPAP Additional Past Medical History / Comment(s): does not use a cpap/bipap, History of Any Multi-Drug Resistant Organisms: None Reported Past Surgical History: No Surgical Hx Reported Past Psychological History: No Psychological Hx Reported Smoking Status: Current every day smoker Past Alcohol Use History: Occasional Past Drug Use History: Marijuana - Past Family History Mother Family Medical History: Myocardial Infarction ([place]) Father History Unknown: Yes Sister(s) Family Medical History: COPD General Exam - General Exam Comments Initial Comments: General: Awake and alert, well-developed; in no apparent distress. HEENT: Head atraumatic, normocephalic. Pupils are equal, round and reactive to light. Extraocular movements intact. Oropharynx moist without erythema or exudate. Neck: Supple. Normal ROM. Cardiovascular: Regular rate and rhythm. No murmurs, rubs or gallops. Chest symmetrical. Respiratory: Lungs clear to auscultation bilaterally. No wheezes, rales or rhonchi. Normal respiratory effort with no use of accessory muscles. Musculoskeletal: Normal ROM, no tenderness bilateral upper and lower extremities. Ambulating normally. Skin: [place], warm and dry without rashes or lesions. No bilateral pedal edema noted. Neurological: Alert and oriented x3. CN II-XII grossly intact. Speech is fluent and answers are appropriate. No focal neuro deficits. Psychiatric: Normal mood and affect. No overt signs of depression or anxiety noted. Limitations: no limitations Course Vital Signs 09/13/17 09/13/17 09/13/17 19:27 20:21 21:01 Temperature 98.8 F Pulse Rate 86 Respiratory 18 18 Rate Blood Pressure 119/80 O2 Sat by Pulse 96 95 Oximetry Medical Decision Making - Medical Decision Making This is a 51-year-old male who presents to the emergency department with request for medication refill. Patient does not have a primary care provider and requests to have losartan, Lipitor, Lasix and Imdur refilled. Patient will be provided with 30 days worth of these refills but strongly advised finding a primary care provider. Patient will be given contact information for on-call PCPs. Also complained of some shortness of breath that he noticed today with exertion. Denies any chest pain or increasing pedal edema. Denies fevers or chills or cough. On initial presentation, vital signs are stable and patient is a 96% on room air. He does not appear to be in any respiratory distress and lungs are clear to auscultation bilaterally. Patient did undergo monitoring of his pulse ox while ambulating. Her pulse ox remained at 95% on room air. Patient's vital signs remained stable and he is in no acute distress. He will be discharged home at this time. This case was discussed in detail with attending physician, Dr. España. Disposition Clinical Impression: Encounter for medication refill, Shortness of breath Disposition: HOME SELF-CARE Condition: Good Instructions: Dyspnea (ED) Additional Instructions: Please take medications as prescribed. Please follow up with primary care provider within 1-2 days. Return to emergency department if symptoms should worsen or any concerns arise. Prescriptions: Atorvastatin Calcium [Lipitor] 20 mg PO DAILY #30 tab Furosemide [Lasix] 80 mg PO DAILY #30 tablet Isosorbide Mononitrate ER [Imdur] 15 mg PO DAILY #30 dose Losartan [Cozaar] 50 mg PO DAILY #30 tab Is patient prescribed a controlled substance at d/c from ED?: No Referrals: None,Stated [Primary Care Provider] - 1-2 days Netta Taveras MD [STAFF PHYSICIAN] - 1-2 days Rochelle Villalobos MD [STAFF PHYSICIAN] - 1-2 days Gurwinder Poe MD [STAFF PHYSICIAN] - 1-2 days Time of Disposition: 21:09
[2017-09-13 21:36] VITALS: BP 150/99; PULSE 85; TEMP 98
== END 2017-09-13 21:36 | disposition home or self-care (01) ==
LOC: EC 19:22
DX: R06.02 Shortness of breath (principal); Z76.0 Encounter for issue of repeat prescription; I11.0 Hypertensive heart disease with heart failure; I50.9 Heart failure, unspecified; F17.200 Nicotine dependence, unspecified, uncomplicated; Z79.899 Other long term (current) drug therapy; Z88.8 Allergy status to other drugs, medicaments and biological substances
CPT/HCPCS: 99284